=== PATIENT | female | born 1940 | race Two or more races ===

== ENCOUNTER 2020-06-11 20:08 | Inpatient (IN) | payer MEDICARE, OTHER ==
[~2020-06-11] VITALS: Ht 152.4 cm; Wt 90.3 kg
[~2020-06-11 20:08] MED LIST: ATORVASTATIN CA40 MG ORAL; CARVEDILOL25 MG ORAL; DIOVAN HCT 3201 EAC1 ORAL; DOCUSATE SODIU100 MG ORAL; FEROSUL325 M1 PO; FUROSEMIDE40 MG ORAL; GABAPENTIN100 MG ORAL; HYDRALAZINE HCL50 MG ORAL; KLOR-CON 1010 MEQ ORAL; LANTUS SOL100 UNIT/1 SUBQ; LEVOTHYROXINE75 MCG ORAL; METFORMIN HCL1000 M1 ORAL; METOLAZONE5 MG PO; MYRBETRIQ25 MG PO; PANTOPRAZOLE SO40 MG ORAL; SERTRALINE HCL50 MG ORAL; SUCRALFATE1 GM ORAL; VITAMIN D325 MC1 PO
--- NOTE | 2020-06-11 20:47 | Emergency Room Report ---
History of Present Illness General Chief Complaint: Gastrointestinal Bleed Source: Patient Present Illness HPI Disclaimer: Please note that this report is being documented using DRAGON technology. This can lead to erroneous entry secondary to incorrect interpretation by the dictating instrument. HPI: 79-year-old female with history of GI bleeds presents for black stools. Symptoms present for the past few days. She reports 5 bowel movements that were almost jet black. Denies bright red bleeding per rectum. She also has a history of gastric polyps status post Endo Clip also had polyps in the colon which were removed. These polyps were negative for malignancy. Prior history of atrial fibrillation but no longer anticoagulated due to GI bleed. Denies abdominal pain, nausea, vomiting, diarrhea, chest pain, palpitation, shortness of breath, fever, chills PMH: Atrial fibrillation, hypertension, hyperlipidemia, diabetes, GI bleed PSH: Polypectomy Allergies: Reviewed Social Hx: Reviewed Allergies: Coded Allergies: No Known Allergies (Unverified , 04/10/20) COVID-19 Screening Contact w/high risk pt: No Experienced COVID-19 symptoms?: No COVID-19 Testing performed ENGLISH ADJUNCT FACULTY: Yes - OCT COVID-19 Screening: Negative COVID-19 COVID-19 Testing Source: [facility] Patient History Now: No Nursing Documentation-PMH Past Medical History: No History, Except For Hx Cardiac Problems: Yes - A-FIBRILLATION , HERNIA Hx Hypertension: Yes Hx Diabetes: Yes Hx Cancer: No Hx Gastrointestinal Problems: Yes - COLON POLYPS Hx Neurological Problems: No Review of Systems All Other Systems: negative except mentioned in HPI Physical Exam Vital Signs Date Time Temp Pulse Resp B/P (MAP) Pulse Ox O2 Delivery O2 Flow Rate FiO2 06/11/20 20:24 97.3 73 18 135/73 (93) 95 Room Air General: Awake and alert, no acute distress HEENT: NC/AT. EOMI. Cardiovascular: RRR. S1 and S2 normal. No murmur appreciated Resp: Normal work of breathing. No cough, wheezing or crackles appreciated Abdomen: Abdomen is soft, nondistended. Nontender. Obese abdomen. Black stool in rectal vault. No palpable hemorrhoids. Skin: Intact. No abrasions, laceration or rash over the exposed skin MSK: Normal tone and bulk. Moving all extremities. No obvious deformity. Neuro: Awake and alert. Mentating appropriately. Procedures Critical Care Time Critical Care Time Total critical care time: Approximately 31 minutes Due to a high probability of clinically significant, life threatening deterioration, the patient required the highest level of preparedness to intervene emergently and I personally spent this critical care time directly and personally managing the patient. This critical care time included obtaining a history, examining the patient, pulse oximetry, ordering and reviewing studies, ordering treatments, evaluating response to treatment and updating management plan as needed, frequent reassessment and discussion with other providers as well as arranging for ultimate disposition. This critical to care time was performed to assess and manage the high probability of life-threatening deterioration that could result in multiorgan failure. This critical care time is separate from the separately billable procedures and treating other patients. Medical Decision Making Diagnostic Impression: Primary Impression: Gastrointestinal bleeding Additional Impressions: Anemia Renal failure (ARF), acute on chronic Chronic atrial fibrillation ER Course Is a 79-year-old female presenting for evaluation of black and tarry stools. Concern for GI bleed. Patient treated with Protonix. Hemoglobin 10.9. No indication for emergent transfusion at this time. Possible urinary tract inf ection patient was treated ceftriaxone. Creatinine elevated from prior visits. Receiving IV fluids. Will be admitted for GI bleed. She is a patient of Dr. Guardado who has accepted her for admission. Laboratory Tests Test 06/11/20 22:05 06/11/20 22:19 White Blood Count 8.1 K/UL (4.8-10.8) Red Blood Count 3.81 M/UL (4.20-5.40) L Hemoglobin 10.9 G/DL (12.0-16.0) L Hematocrit 33.4 % (37.0-47.0) L Mean Corpuscular Volume 88 FL (80-99) Mean Corpuscular Hemoglobin 28.6 PG (27.0-31.0) Mean Corpuscular Hemoglobin Concent 32.6 G/DL (32.0-36.0) Red Cell Distribution Width 15.9 % (11.6-14.8) H Platelet Count 160 K/UL (150-450) Mean Platelet Volume 8.3 FL (6.5-10.1) Neutrophils (%) (Auto) 76.8 % (45.0-75.0) H Lymphocytes (%) (Auto) 12.7 % (20.0-45.0) L Monocytes (%) (Auto) 6.7 % (1.0-10.0) Eosinophils (%) (Auto) 2.7 % (0.0-3.0) Basophils (%) (Auto) 1.0 % (0.0-2.0) Stool Occult Blood Pending Sodium Level 137 MMOL/L (136-145) Potassium Level 3.7 MMOL/L (3.5-5.1) Chloride Level 98 MMOL/L (98-107) Carbon Dioxide Level 27 MMOL/L (21-32) Anion Gap 12 mmol/L (5-15) Blood Urea Nitrogen 99 mg/dL (7-18) H Creatinine 2.3 MG/DL (0.55-1.30) H Estimated Glomerular Filtration Rate 20.5 mL/min (>60) Glucose Level 133 MG/DL (74-106) H Calcium Level 9.3 MG/DL (8.5-10.1) Total Bilirubin 0.3 MG/DL (0.2-1.0) Aspartate Amino Transferase (AST) 13 U/L (15-37) L Alanine Aminotransferase (ALT) 16 U/L (12-78) Alkaline Phosphatase 88 U/L (46-116) Troponin I 0.025 ng/mL (0.000-0.056) Total Protein 6.7 G/DL (6.4-8.2) Albumin 3.6 G/DL (3.4-5.0) Globulin 3.1 g/dL Albumin/Globulin Ratio 1.2 (1.0-2.7) Lipase 218 U/L (73-393) Urine Color Pale yellow Urine Appearance Slightly cloudy Urine pH 5 (4.5-8.0) Urine Specific [place] 1.005 (1.005-1.035) Urine Protein Negative (NEGATIVE) Urine Glucose (UA) Negative (NEGATIVE) Urine Ketones Negative (NEGATIVE) Urine Blood Negative (NEGATIVE) Urine Nitrite Negative (NEGATIVE) Urine Bilirubin Negative (NEGATIVE) Urine Urobilinogen Normal MG/DL (0.0-1.0) Urine Leukocyte Esterase 2+ (NEGATIVE) H Urine RBC 0 /HPF (0 - 2) Urine WBC 15-20 /HPF (0 - 2) H Urine Squamous Epithelial Cells Many /LPF (NONE/OCC) H Urine Bacteria Many /HPF (NONE) H EKG Diagnostic Results Troponin ordered: Yes When was troponin ordered?: Jun 11, 2020 EKG Time: 22:57 Rate: normal Other Impression Atrial fibrillation, normal rate Rhythm Strip Diag. Results Rhythm Strip Time: 02:25 EP Interpretation: yes Rate: 60s Rhythm: other - Irregularly irregular rhythm Last Vital Signs Date Time Temp Pulse Resp B/P (MAP) Pulse Ox O2 Delivery O2 Flow Rate FiO2 06/11/20 20:24 97.3 73 18 135/73 (93) 95 Room Air Disposition: ADMITTED INPATIENT Condition: Serious Fritz Sotne MD Jun 11, 2020 20:47
[2020-06-11 21:00] VITALS: BP 119/48
--- NOTE | 2020-06-11 21:00 | NUR ---
ED Nurse Note: Patient walked into ED from home for c/o black stool for the past few days. She notes she has had 5 BM that were consistenly dark black. She denies bright red blood in stool. She denies SOB, cough, fever, abdominal pain, N/V. She is aaox4, breathing is normal and unlabored. Patient connected to monitor technician. Safety measures in place.
[2020-06-11] MEDS ORDERED: Pantoprazole Inj IVP ONE (21:30)
[2020-06-11 22:26] LABS: EOSINOPHILS % (AUTO) 2.7 % (0.0-3.0); HEMATOCRIT 33.4 % (37.0-47.0); HEMOGLOBIN 10.9 G/DL (12.0-16.0); LYMPHOCYTES % (AUTO) 12.7 % (20.0-45.0); MEAN CORPUSCULAR VOLUME 88 FL (80-99); MONOCYTES % (AUTO) 6.7 % (1.0-10.0); NEUTROPHILS % (AUTO) 76.8 % (45.0-75.0); PLATELET COUNT 160 K/UL (150-450); RED BLOOD COUNT 3.81 M/UL (4.20-5.40); RED CELL DISTRIBUTION WIDTH 15.9 % (11.6-14.8); WHITE BLOOD COUNT 8.1 K/UL (4.8-10.8)
[2020-06-11 22:35] LABS: APPEARANCE,URINE SLIGHTLY CLOUDY; BILIRUBIN, URINE NEGATIVE (NEGATIVE); COLOR,URINE PALE YELLOW; GLUCOSE, URINE (UA) NEGATIVE (NEGATIVE); KETONES,URINE NEGATIVE (NEGATIVE); LEUKOCYTE ESTERASE ,URINE 2+ (NEGATIVE); NITRITE,URINE NEGATIVE (NEGATIVE); PH,URINE 5 (4.5-8.0); PROTEIN,URINE NEGATIVE (NEGATIVE); UROBILINOGEN,URINE NORMAL MG/DL (0.0-1.0)
[2020-06-11] MEDS ORDERED: cefTRIAXone 1 GM in NS 55 ML IVPB ONE (22:45)
[2020-06-11 22:46] LABS: CALCIUM 9.3 MG/DL (8.5-10.1); CREATININE 2.3 MG/DL (0.55-1.30); POTASSIUM 3.7 MMOL/L (3.5-5.1)
[2020-06-11 22:50] LABS: ALBUMIN 3.6 G/DL (3.4-5.0); ALBUMIN/GLOBULIN RATIO 1.2 (1.0-2.7); BILIRUBIN,TOTAL 0.3 MG/DL (0.2-1.0)
[2020-06-11 23:00] VITALS: BP 141/60
--- NOTE | 2020-06-11 23:00 | NUR ---
ED Nurse Note: Patient is resting in bed. VSS. She is able to use bedside commode without difficulty. Awake and alert, aware of hospital admission and agrees with treatment plan.
--- NOTE | 2020-06-11 23:25 | NUR ---
ED Nurse Note: Report given to LULÚ Evans.
--- NOTE | 2020-06-11 23:30 | NUR ---
ED Nurse Note: REPORT GIVEN TO NNEKA CHINO. PATIENT TO BE ADMITTED TO TELE 211-2 UNDER THE CARE OF UZMA OLIVARES
[2020-06-12] VITALS: BP 148/62
--- NOTE | 2020-06-12 | NUR ---
NURSE NOTES: Received pt from ED via gurney. Pt transferred to [facility] without any incident. Received report from LULÚ Jeronimo. Pt is A/Ox4. lunchroom monitor is in placed; pt is in A. Fib. IV site intact, asymptomatic and patent. Belonging list checked and signed. Bed is in the lowest position and locked. Call light and bedside table is within reach. No signs/symptoms of acute distress noted. Will contact MD for admission orders.
--- NOTE | 2020-06-12 00:20 | NUR ---
ED Nurse Note: Patient stable for tele transfer at this time. Patient is aaox4, breathing is normal and vital signs are stable at time of ED departure. Patient taken to unit via gurney while connected to bus driver/monitor by RN. She took belongings with her. IV patent and intact. Transferred care to LULÚ Evans w/o complication.
[2020-06-12] MEDS ORDERED: D5 1/2NS 1,000 ML IV SCH (00:30)
[2020-06-12] MEDS ORDERED: Miralax 17gm pkt ORAL PRN (00:30)
[2020-06-12] MEDS ORDERED: Nitroglycerin Subl 0.4mg tab SL PRN (00:30)
--- NOTE | 2020-06-12 00:30 | NUR ---
NURSE NOTES: Received admission orders from Dr. Blackburn. Will note and carry out.
[2020-06-12 04:00] VITALS: BP 151/66
[2020-06-12] MEDS: NovoLOG Insulin Flexpen SUBQ SCH ×4 (05:49→21:39)
[2020-06-12] MEDS: Sucralfate 1gm tab ORAL SCH ×4 (06:19→21:28)
[2020-06-12] MEDS: HydrALAZINE 50mg tab ORAL SCH ×3 (06:19→21:41)
--- NOTE | 2020-06-12 07:30 | NUR ---
NURSE NOTES: RECEIVED PATIENT A/A/OX4, [place]GI[place] SPEAKING AND ABLE TO FOLLOW COMMANDS. AMBULATES WITH ASSISTANCE. BSC. PIV PATENT AND INTACT. IVF INFUSING WELL. NPO XCEPT MEDS AND ICE CHIPS. NO ACUTE CARDIO RESP DISTRESS NOTED. KEPT BED IN THE LOWEST POSITION. SIDERAILS ARE UPX2, CALL LIGHT IS WITHIN REACH. BED BRAKES AND LOCK MODE @ ALL TIMES. WILL CONT TO MONITOR.
--- NOTE | 2020-06-12 07:50 | NUR ---
NURSE HAND-OFF REPORT: Important Events on Shift: Pt admitted for GI Bleed. Received admission order from Dr. Blackburn. No acute distress during judge's clerk. Patient Status: Stable Diet: NPO Pending Orders: N Pending Results/Labs: AM Labs Pending MD notification: N Latest Vital Signs: Temperature 97.7 , Pulse 75 , B/P 139 /66 , Respiratory Rate 17 , O2 SAT 98 , Room Air, O2 Flow Rate . EKG Rhythm: Atrial Fibrillation Rhythm change?: N Latest Lopez Fall Score: 70 Fall Risk: High Risk Safety Measures: Call light Within Reach, Bed Alarm Zone 2, Side Rails Side Rails x2, Bed position Low and Locked. Fall Precautions: Yellow Socks Yellow Gown Door Sign Patient Fall Education Report given to LULÚ Tabares.
[2020-06-12 08:00] VITALS: BP 134/56
[2020-06-12] MEDS: Carvedilol 25mg Tab ORAL SCH ×2 (08:32→21:29)
[2020-06-12] MEDS: Sertraline 50mg tab ORAL SCH (08:32)
--- NOTE | 2020-06-12 10:22 | Consultation ---
Consult Note Consult Note I am asked to evaluate the patient at the request of Dr. Guardado for renal failure Patient seen in room 211 Full note to follow HPI: 79-year-old female with history of GI bleeds presents for black stools. Symptoms present for the past few days. She reports 5 bowel movements that were almost jet black. Denies bright red bleeding per rectum. She also has a history of gastric polyps status post Endo Clip also had polyps in the colon which were removed. These polyps were negative for malignancy. Prior history of atrial fibrillation but no longer anticoagulated due to GI bleed. Denies abdominal pain, nausea, vomiting, diarrhea, chest pain, palpitation, shortness of breath, fever, chills PMH: Atrial fibrillation, hypertension, hyperlipidemia, diabetes, GI bleed PSH: Polypectomy Allergies: Reviewed Social Hx: Reviewed Allergies: Coded Allergies: No Known Allergies (Unverified , 04/10/20) COVID-19 Screening Contact w/high risk pt: No Experienced COVID-19 symptoms?: No COVID-19 Testing performed OPERATOR ENGINEER: Yes - OCT COVID-19 Screening: Negative COVID-19 COVID-19 Testing Source: [facility] Past Medical History: No History, Except For Hx Cardiac Problems: Yes - A-FIBRILLATION , HERNIA Hx Hypertension: Yes Hx Diabetes: Yes Hx Gastrointestinal Problems: Yes - COLON POLYPS Vital Signs ER: Date Time Temp Pulse Resp B/P (MAP) Pulse Ox O2 Delivery O2 Flow Rate FiO2 06/11/20 20:24 97.3 73 18 135/73 (93) 95 Room Air PHYSICAL EXAMINATION: VITAL SIGNS: Show blood pressure of 130/70, pulse is 70, respirations 18, temperature 97.5. HEAD AND NECK: Shows no JVD. LUNGS: Clear. CARDIOVASCULAR: Shows regular S1 and S2 with no gallop or murmur. ABDOMEN: Soft. EXTREMITIES: No pitting edema. LABORATORY AND DIAGNOSTIC DATA: Her labs show white count of 5.6, hemoglobin 10.2, hematocrit of 31, and platelet count is 139. Sodium is 142, potassium 3.8, BUN of 16, creatinine 1.8, and glucose of 196. BNP 6517. . Assessment/Plan Acute renal failure, superimposed on CKD Dehydration Anemia, GI bleed History of atrial fibrillation UTI Diabetes mellitus Hypothyroidism Slow hydrate Monitor renal parameters Monitor hemoglobin hematocrit Antibiotics 2D echocardiogram Kidney ultrasound Check TSH, lipid panel, anemia work-up, hemoglobin A1c Per consultants Per orders Caleb Agudelo MD Jun 12, 2020 10:22
[2020-06-12] MEDS ORDERED: Docusate 100mg cap ORAL PRN (10:30)
--- NOTE | 2020-06-12 10:54 | NUR ---
CASE MANAGEMENT:REVIEW 79 YR OLD FEMALE PRESENTED TO ER BY FAMILY CC; BLACK STOOLS PMH: AFIB SI:GIB. AC/CHR RENAL FAILURE. ANEMIA 97.3 73 18 119/48 95% ON RA H/H-10.9/33.4 BUN+99 CR+2.3 IS:1L NS BOLUS IV ROCEPHIN URINE CX : TO TELEMETRY
[2020-06-12] MEDS: D5NS 1,000 ML IV SCH ×3 (11:38→23:50)
[2020-06-12] MEDS: Pantoprazole Inj IVP SCH ×2 (11:46→21:16)
--- NOTE | 2020-06-12 11:58 | General Progress Note ---
Subjective Allergies: Coded Allergies: No Known Allergies (Unverified , 04/10/20) Objective Last 24 Hour Vital Signs Date Time Temp Pulse Resp B/P (MAP) Pulse Ox O2 Delivery O2 Flow Rate FiO2 06/12/20 11:18 Room Air 06/12/20 08:32 68 134/56 06/12/20 08:00 65 06/12/20 08:00 98.2 68 20 134/56 (82) 96 06/12/20 06:19 139/66 06/12/20 04:00 97.7 75 17 151/66 (94) 98 06/12/20 04:00 64 06/12/20 00:56 Room Air 06/12/20 00:38 65 06/12/20 00:20 97.8 78 18 139/66 99 Room Air 06/12/20 00:00 98.1 65 17 148/62 (90) 97 06/11/20 23:00 97.8 72 18 141/60 99 Room Air 06/11/20 21:00 73 18 Room Air 06/11/20 21:00 97.3 70 18 119/48 98 Room Air 06/11/20 20:24 97.3 73 18 135/73 (93) 95 Room Air Intake and Output 06/11/20 06/12/20 19:00 07:00 Intake Total 1055 ml Balance 1055 ml Intake Oral 0 ml IV Total 1055 ml # Voids 4 Laboratory Tests 06/11/20 22:05: White Blood Count 8.1, Red Blood Count 3.81L, Hemoglobin 10.9L, Hematocrit 33.4L , Mean Corpuscular Volume 88, Mean Corpuscular Hemoglobin 28.6, Mean Corpuscular Hemoglobin Concent 32.6, Red Cell Distribution Width 15.9H, Platelet Count 160, Mean Platelet Volume 8.3, Neutrophils (%) (Auto) 76.8H, Lymphocytes (%) (Auto) 12.7L, Monocytes (%) (Auto) 6.7, Eosinophils (%) (Auto) 2.7, Basophils (%) (Auto) 1.0, Stool Occult Blood [Pending], Sodium Level 137, Potassium Level 3.7, Chloride Level 98, Carbon Dioxide Level 27, Anion Gap 12, Blood Urea Nitrogen 99H, Creatinine 2.3H, Estimat Glomerular Filtration Rate 20.5, Glucose Level 133H, Calcium Level 9.3, Total Bilirubin 0.3, Aspartate Amino Transf (AST/SGOT) 13L, Alanine Aminotransferase (ALT/SGPT) 16, Alkaline Phosphatase 88, Troponin I 0.025, Total Protein 6.7, Albumin 3.6, Globulin 3.1, Albumin/Globulin Ratio 1 .2, Lipase 218 06/11/20 22:19: Urine Color Pale yellow, Urine Appearance Slightly cloudy, Urine pH 5, Urine Specific [place] 1.005, Urine Protein Negative, Urine Glucose (UA) Negative, Urine Ketones Negative, Urine Blood Negative, Urine Nitrite Negative, Urine Bilirubin Negative, Urine Urobilinogen Normal, Urine Leukocyte Esterase 2+H, Urine RBC 0, Urine WBC 15-20H, Urine Squamous Epithelial Cells ManyH, Urine James teria ManyH 06/12/20 05:40: POC Whole Blood Glucose 127H Height (Feet): 5 Height (Inches): 0.00 Weight (Pounds): 200 Assessment/Plan Assessment/Plan: GI Consult Full note to follow Recurrent GI bleed Will schedule for EGD and push enteroscopy Thank you P Poppy Akbar MD Jun 12, 2020 11:58
[2020-06-12 12:00] VITALS: BP 134/55
--- NOTE | 2020-06-12 12:33 | NUR ---
NURSE NOTES: SENT URINE SAMPLE FOR NA. WILL CONT TO MONITOR.
--- NOTE | 2020-06-12 14:21 | Consultation ---
History of Present Illness General Date patient seen: Jun 12, 2020 Chief Complaint: Gastrointestinal Bleed Present Illness HPI 79-year-old female with history afib, Not anticoagulated, htn, DM, previous episode GI bleeding presented b/o black stools for the past few days. She was found to be anemic and in renal failure. she is admitted for further management. Allergies: Coded Allergies: No Known Allergies (Unverified , 04/10/20) Medication History Scheduled Atorvastatin Calcium* (Atorvastatin Calcium*), 40 MG ORAL BEDTIME, (Reported) Carvedilol* (Carvedilol*), 25 MG ORAL EVERY 12 HOURS, (Reported) Cholecalciferol (Vitamin D3) (Vitamin D3*), 25 MCG PO DAILY, (Reported) Ferrous Sulfate (Ferosul), 325 MG PO DAILY, (Reported) Hydralazine Hcl* (Hydralazine Hcl*), 50 MG ORAL EVERY 8 HOURS, (Reported) Insulin Glargine (Lantus), 30 UNITS SUBQ DAILY, (Reported) Levothyroxine Sodium* (Synthorid*), 75 MCG ORAL DAILY, (Reported) Metformin Hcl* (Metformin Hcl*), 1,000 MG ORAL TWICE A DAY, (Reported) Mirabegron (Myrbetriq), 25 MG PO DAILY, (Reported) Pantoprazole* (Pantoprazole*), 40 MG ORAL BID Potassium Chloride (Klor-Con 10), 10 MEQ ORAL DAILY, (Reported) Sertraline Hcl* (Zoloft*), 50 MG ORAL DAILY, (Reported) Sucralfate* (Carafate*), 1 GM ORAL FOUR TIMES A DAY Valsartan/Hydrochlorothiazide 320-25MG (Diovan Hct 320-25 Mg Tablet), 1 TAB ORAL DAILY, (Reported) Scheduled PRN Docusate Sodium* (Docusate Sodium*), 100 MG ORAL TWICE A DAY PRN for Constipation, (Reported) Miscellaneous Medications Gabapentin* (Gabapentin*), 100 MG ORAL, (Reported) Metolazone (Metolazone), 5 MG PO, (Reported) Patient History Healthcare decision maker Resuscitation status Advanced Directive on File Past Medical/Surgical History Past Medical/Surgical History: (1) Chronic atrial fibrillation (2) Diabetes mellitus (3) Hypothyroidism (4) HTN (hypertension) (5) DMII (diabetes mellitus, type 2) (6) Anemia Review of Systems All Other Systems: negative except mentioned in HPI Physical Exam General Appearance: WD/WN, no apparent distress Lines, tubes and drains: peripheral HEENT: normocephalic, atraumatic Neck: non-tender, supple Respiratory/Chest: chest wall non-tender, lungs clear, normal breath sounds Breasts: no masses Cardiovascular/Chest: normal peripheral pulses Abdomen: normal bowel sounds, non tender Genitourinary/Rectal: normal genital exam Last 24 Hour Vital Signs Date Time Temp Pulse Resp B/P (MAP) Pulse Ox O2 Delivery O2 Flow Rate FiO2 06/12/20 13:22 141/62 06/12/20 12:28 69 06/12/20 12:00 98.1 68 18 134/55 (81) 97 06/12/20 11:18 Room Air 06/12/20 08:32 68 134/56 06/12/20 08:00 65 06/12/20 08:00 98.2 68 20 134/56 (82) 96 06/12/20 06:19 139/66 06/12/20 04:00 97.7 75 17 151/66 (94) 98 06/12/20 04:00 64 06/12/20 00:56 Room Air 06/12/20 00:38 65 06/12/20 00:20 97.8 78 18 139/66 99 Room Air 06/12/20 00:00 98.1 65 17 148/62 (90) 97 06/11/20 23:00 97.8 72 18 141/60 99 Room Air 06/11/20 21:00 73 18 Room Air 06/11/20 21:00 97.3 70 18 119/48 98 Room Air 06/11/20 20:24 97.3 73 18 135/73 (93) 95 Room Air Intake and Output 06/11/20 06/12/20 19:00 07:00 Intake Total 1055 ml Balance 1055 ml Intake Oral 0 ml IV Total 1055 ml # Voids 4 Laboratory Tests Test 06/11/20 22:05 06/11/20 22:19 06/12/20 05:40 06/12/20 12:06 White Blood Count 8.1 K/UL (4.8-10.8) Red Blood Count 3.81 M/UL (4.20-5.40) L Hemoglobin 10.9 G/DL (12.0-16.0) L Hematocrit 33.4 % (37.0-47.0) L Mean Corpuscular Volume 88 FL (80-99) Mean Corpuscular Hemoglobin 28.6 PG (27.0-31.0) Mean Corpuscular Hemoglobin Concent 32.6 G/DL (32.0-36.0) Red Cell Distribution Width 15.9 % (11.6-14.8) H Platelet Count 160 K/UL (150-450) Mean Platelet Volume 8.3 FL (6.5-10.1) Neutrophils (%) (Auto) 76.8 % (45.0-75.0) H Lymphocytes (%) (Auto) 12.7 % (20.0-45.0) L Monocytes (%) (Auto) 6.7 % (1.0-10.0) Eosinophils (%) (Auto) 2.7 % (0.0-3.0) Basophils (%) (Auto) 1.0 % (0.0-2.0) Stool Occult Blood Pending Sodium Level 137 MMOL/L (136-145) Potassium Level 3.7 MMOL/L (3.5-5.1) Chloride Level 98 MMOL/L (98-107) Carbon Dioxide Level 27 MMOL/L (21-32) Anion Gap 12 mmol/L (5-15) Blood Urea Nitrogen 99 mg/dL (7-18) H Creatinine 2.3 MG/DL (0.55-1.30) H Estimat Glomerular Filtration Rate 20.5 mL/min (>60) Glucose Level 133 MG/DL (74-106) H Calcium Level 9.3 MG/DL (8.5-10.1) Total Bilirubin 0.3 MG/DL (0.2-1.0) Aspartate Amino Transf (AST/SGOT) 13 U/L (15-37) L Alanine Aminotransferase (ALT/SGPT) 16 U/L (12-78) Alkaline Phosphatase 88 U/L (46-116) Troponin I 0.025 ng/mL (0.000-0.056) Total Protein 6.7 G/DL (6.4-8.2) Albumin 3.6 G/DL (3.4-5.0) Globulin 3.1 g/dL Albumin/Globulin Ratio 1.2 (1.0-2.7) Lipase 218 U/L (73-393) Urine Color Pale yellow Urine Appearance Slightly cloudy Urine pH 5 (4.5-8.0) Urine Specific [place] 1.005 (1.005-1.035) Urine Protein Negative (NEGATIVE) Urine Glucose (UA) Negative (NEGATIVE) Urine Ketones Negative (NEGATIVE) Urine Blood Negative (NEGATIVE) Urine Nitrite Negative (NEGATIVE) Urine Bilirubin Negative (NEGATIVE) Urine Urobilinogen Normal MG/DL (0.0-1.0) Urine Leukocyte Esterase 2+ (NEGATIVE) H Urine RBC 0 /HPF (0 - 2) Urine WBC 15-20 /HPF (0 - 2) H Urine Squamous Epithelial Cells Many /LPF (NONE/OCC) H Urine Bacteria Many /HPF (NONE) H POC Whole Blood Glucose 127 MG/DL (74-106) H Urine Random Sodium 47 mmol/L (20-110) Height (Feet): 5 Height (Inches): 0.00 Weight (Pounds): 200 Medications Current Medications Medications (Trade) Dose Ordered Sig/Fidel Route PRN Reason Start Time Stop Time Status Last Admin Dose Admin Acetaminophen (Tylenol) 650 mg Q4H PRN ORAL fever 06/12/20 00:30 07/12/20 00:29 Carvedilol (Coreg) 25 mg EVERY 12 HOURS ORAL 06/12/20 09:00 07/12/20 08:59 06/12/20 08:32 Dextrose (Dextrose 50%) 25 ml Q30M PRN IV Hypoglycemia 06/12/20 00:30 09/10/20 00:29 Dextrose (Dextrose 50%) 50 ml Q30M PRN IV Hypoglycemia 06/12/20 00:30 09/10/20 00:29 Dextrose/Sodium Chloride 1,000 ml @ 75 mls/hr [id number] IV 06/12/20 10:30 07/12/20 10:29 06/12/20 11:38 Dextrose/Sodium Chloride 1,000 ml @ 150 mls/hr Q6H40M IV 06/12/20 14:15 07/12/20 14:14 Diphenhydramine HCl (Benadryl) 25 mg Q6H PRN ORAL Itching/Pruritis 06/12/20 00:30 07/12/20 00:29 Docusate Sodium (Colace) 100 mg BIDPRN PRN ORAL Constipation 06/12/20 10:30 07/12/20 10:29 Gabapentin (Neurontin) 100 mg BID ORAL 06/12/20 09:00 07/12/20 08:59 06/12/20 08:32 Hydralazine HCl (Apresoline) 50 mg EVERY 8 HOURS ORAL 06/12/20 06:00 09/10/20 05:59 06/12/20 13:22 Insulin Aspart (NovoLOG) BEFORE MEALS AND HS SUBQ 06/12/20 06:30 09/10/20 06:29 Levothyroxine Sodium (Synthroid) 75 mcg DAILY@0630 ORAL 06/12/20 06:30 07/12/20 06:29 06/12/20 06:19 Nitroglycerin (Ntg) 0.4 mg Q5M X 3 DOSES PRN SL Prn Chest Pain 06/12/20 00:30 07/12/20 00:29 Ondansetron HCl (Zofran) 4 mg Q6H PRN IVP Nausea & Vomiting 06/12/20 00:30 07/12/20 00:29 Pantoprazole (Protonix) 40 mg EVERY 12 HOURS IVP 06/12/20 10:45 07/12/20 10:44 06/12/20 11:46 Polyethylene Glycol (Miralax) 17 gm HSPRN PRN ORAL Constipation 06/12/20 00:30 07/12/20 00:29 Sertraline HCl (Zoloft) 50 mg DAILY ORAL 06/12/20 09:00 07/12/20 08:59 06/12/20 08:32 Sucralfate (Carafate) 1 gm AC+HS ORAL 06/12/20 06:30 09/10/20 06:29 06/12/20 11:38 Temazepam (Restoril) 15 mg HSPRN PRN ORAL Insomnia 06/12/20 00:30 06/19/20 00:29 Assessment/Plan Problem List: (1) GI (gastrointestinal bleed) ICD Codes: K92.2 - Gastrointestinal hemorrhage, unspecified SNOMED: 91666573 (2) Acute dehydration ICD Codes: E86.0 - Dehydration SNOMED: 3132696, 10665858 (3) Renal failure (ARF), acute on chronic ICD Codes: N17.9 - Acute kidney failure, unspecified; N18.9 - Chronic kidney disease, unspecified SNOMED: 318695894 (4) Anemia ICD Codes: D64.9 - Anemia, unspecified SNOMED: 313845734 (5) Diabetes mellitus ICD Codes: E11.9 - Type 2 diabetes mellitus without complications SNOMED: 95126458 (6) HTN (hypertension) ICD Codes: I10 - Essential (primary) hypertension SNOMED: 79608712 (7) Hypothyroidism ICD Codes: E03.9 - Hypothyroidism, unspecified SNOMED: 57462422 Assessment/Plan: NPO iv fluids check electrolytes prbc prn keep in teli GI evaluation hold all antigoaculations Cassy Blackburn MD Jun 12, 2020 14:21
[2020-06-12] MEDS: D5 1/2NS 1,000 ML IV SCH ×2 (14:22→21:19)
[2020-06-12 15:06] LABS: BASOPHILS % (AUTO) 1.1 % (0.0-2.0); EOSINOPHILS % (AUTO) 2.1 % (0.0-3.0); HEMATOCRIT 33.3 % (37.0-47.0); HEMOGLOBIN 10.6 G/DL (12.0-16.0); LYMPHOCYTES % (AUTO) 13.7 % (20.0-45.0); MEAN CORPUSCULAR VOLUME 88 FL (80-99); MONOCYTES % (AUTO) 6.6 % (1.0-10.0); NEUTROPHILS % (AUTO) 76.4 % (45.0-75.0); PLATELET COUNT 159 K/UL (150-450); RED BLOOD COUNT 3.77 M/UL (4.20-5.40); RED CELL DISTRIBUTION WIDTH 15.5 % (11.6-14.8); WHITE BLOOD COUNT 6.3 K/UL (4.8-10.8)
[2020-06-12 15:10] LABS: BLOOD UREA NITROGEN 84 mg/dL (7-18); CALCIUM 9.1 MG/DL (8.5-10.1); CARBON DIOXIDE 29 MMOL/L (21-32); CHLORIDE 101 MMOL/L (98-107); CREATININE 1.9 MG/DL (0.55-1.30); POTASSIUM 3.4 MMOL/L (3.5-5.1); SODIUM 139 MMOL/L (136-145)
--- NOTE | 2020-06-12 15:42 | NUR ---
NURSE NOTES: SENT SPECIMEN FOR RAPID COVID SWAB. WILL CONT TO MONITOR
--- NOTE | 2020-06-12 15:46 | NUR ---
NURSE NOTES: MADE DR PETERSEN AWARE OF THE K+3.4 TODAY. AWAITS FOR A CALLBACK. WILL CONT TO MONITOR. Addendum: 06/12/20 at 1731 by MARGIE HIGH LVN NEW ORDER OBTAINED.
[2020-06-12 15:47] LABS: % IRON SATURATION 16 % (15-50); IRON 39 ug/dL (50-175); TOTAL IRON BINDING CAPACITY 240 ug/dL (250-450)
[2020-06-12 15:49] VITALS: BP 145/65
[2020-06-12 16:25] LABS: FERRITIN 50 NG/ML (8-388)
--- NOTE | 2020-06-12 16:39 | Diagnostic Imaging Report ---
Indication: Acute renal failure Technique: Grayscale and duplex images of the kidneys, retroperitoneum, and bladder were obtained. Comparison: none Findings: Right kidney measures 7.9 cm in length. Left kidney measures 9.1 cm in length. Both kidneys demonstrate normal echogenicity with lobulated contours. No hydronephrosis. There is a small cyst in the right kidney. Partially obscured inferior vena cava. Bladder is normal. There is incidental finding of a gallstone within the gallbladder Impression: Small right kidney Negative for hydronephrosis Small right renal cyst is incidentally noted. Cholelithiasis.
--- NOTE | 2020-06-12 18:12 | NUR ---
NURSE NOTES: MADE DR CLEMENT AWARE OF THE RESULT OF COVID - NEGATIVE. SALAZAR CONT TO MONITOR
--- NOTE | 2020-06-12 18:13 | NUR ---
NURSE NOTES: GIVEN MIRALAX FOR CONSTIPATION. ABLE TO GO ON THE COMMODE WITH ASSISTANCE. WILL CONT TO MONITOR.
--- NOTE | 2020-06-12 19:16 | NUR ---
NURSE HAND-OFF REPORT: Important Events on Shift:[kept patient clean and comfortable. working on obtaining consent from family.] Patient Status: [medicated for constipation] Diet: [NPO xcept med/ ice chips] Pending Orders: [labs] Pending Results/Labs:[in am] Pending MD notification:[] Latest Vital Signs: Temperature 97.4 , Pulse 66 , B/P 145 /65 , Respiratory Rate 20 , O2 SAT 96 , Room Air, O2 Flow Rate . Vital Sign Comment: [] EKG Rhythm: Atrial Fibrillation Rhythm change?: N MD Notified?: - MD Response: Latest Lopez Fall Score: 70 Fall Risk: High Risk Safety Measures: Call light Within Reach, Bed Alarm Zone 1, Side Rails Side Rails x2, Bed position Low and Locked. Fall Precautions: Yellow Socks Yellow Gown Door Sign Patient Fall Education Report given to [ap].
--- NOTE | 2020-06-12 20:00 | NUR ---
NURSE NOTES: RECEIVED PATIENT LYING IN BED, AWAKE, ALERT/ORIENTED X4, TAJIK SPEAKING, DENIES PAIN. NO SIGNS AND SYMPTOMS OF ACUTE CARDIO RESPIRATORY DISTRESS/SHORTNESS OF BREATH, TRACE EDEMA NOTED, A FIB ON ALL SOURCE ANALYST. DENIES GI DISCOMFORT, NO EVIDENCE OF BLEEDING. ABDOMEN SOFT/NON DISTENDED/NON TENDER, CONTINENT OF B/B, REQUIRE ASSISTANCE, TO BEDSIDE COMMODE, NO BOWEL MOVEMENT, REMAIN NPO / POSSIBLE EGD AND PUSH ENTEROSCOPY, CONSENT NOT OBTAINED. IV SITE INTACT, NO REDNESS/SWELLING NOTED. SIDE RAILS UP X3/BED IN LOWEST POSITION FOR SAFETY, ENCOURAGED PATIENT TO UTILIZE CALL LIGHT FOR ASSISTANCE, VERBALIZED UNDERSTANDING. CONTINUE WITH CURRENT PLAN OF CARE. NAD.
[2020-06-13] VITALS (10 sets, daily range): BP systolic 125–162; BP diastolic 42–87
--- NOTE | 2020-06-13 02:00 | Consultation ---
DATE OF CONSULTATION: 06/12/2020 GASTROENTEROLOGY CONSULTATION CONSULTING PHYSICIAN: Poppy Pabon MD CHIEF COMPLAINT: I was asked to see this patient by Dr. Reilly Guardado for evaluation of recurrent gastrointestinal bleeding. HISTORY OF PRESENT ILLNESS: The patient is a 79-year-old woman whom I first saw in February when she was admitted for gastrointestinal bleeding. Patient had been previously admitted to [facility] with gastrointestinal bleeding. She underwent an endoscopy in December and some endoscopic treatments were given to her at that time. She had been on some anticoagulation for atrial fibrillation, which worsened her bleeding. When she was admitted in February, she underwent a second endoscopy, which was done by me and the endoscopy showed 2 Endoclips in the midbody of the stomach, which were presumably placed in the outside hospital in December. There was also a 1 centimeter irregularly shaped early gastric polyp in the midbody of the stomach, which was removed. The pathology from that specimen showed a hyperplastic polyp. A few days after that endoscopy, the patient had a colonoscopy showing blood coming from the terminal ileum and therefore from above the colon. Two diminutive polyps were seen on that examination, which were not removed, but these were removed on a subsequent outpatient colonoscopy. Patient is now brought into the hospital due to a several-day history of black stools, which were liquid and consistent with recurrent gastrointestinal bleeding. The patient denies any nausea or vomiting and was advised to come to the hospital for reevaluation. PAST MEDICAL HISTORY: Remarkable for history of upper gastrointestinal bleeding, history of colonic polyps, history of atrial fibrillation, history of tih-omhxaxn-oehhwshgu diabetes mellitus, hypercholesterolemia, hypertension, hypothyroidism, history of overactive bladder. PAST SURGICAL HISTORY: Status post . FAMILY HISTORY: Noncontributory. SOCIAL HISTORY: Patient does not smoke or drink alcohol. She is and Kinyarwanda-speaking. ALLERGIES: None. MEDICATIONS: See the chart list for details. REVIEW OF SYSTEMS: Otherwise negative. PHYSICAL EXAMINATION: GENERAL: Pleasant woman, seen in her room. HEENT: Normocephalic and atraumatic. Sclerae anicteric. Oropharynx clear. NECK: Supple. CHEST: Clear to auscultation. CARDIOVASCULAR: Revealed a regular rate. ABDOMEN: Soft. EXTREMITIES: Revealed no edema. LABORATORY DATA: Noted. ASSESSMENT: This patient presents with recurrent gastrointestinal bleeding, which is presumably upper in source. Differential diagnosis includes recurrent bleeding from ulcers or polyps or arteriovenous malformations. Given the multiple endoscopies with unclear findings, push enteroscopy will be added to the examination tomorrow to evaluate the proximal small bowel. RECOMMENDATIONS: 1. Keep patient NPO. 2. Serial CBC. 3. Transfuse as necessary. 4. Proton pump inhibitor. 5. Endoscopy with push enteroscopy tomorrow. Thank you for asking me to participate in the care of this patient. Poppy Pabon M.D. DR: PINEDA JOB#: [id number] CC:
[2020-06-13 07:04] LABS: BASOPHILS % (AUTO) 1.5 % (0.0-2.0); EOSINOPHILS % (AUTO) 2.4 % (0.0-3.0); HEMATOCRIT 33.2 % (37.0-47.0); HEMOGLOBIN 10.9 G/DL (12.0-16.0); LYMPHOCYTES % (AUTO) 13.8 % (20.0-45.0); MEAN CORPUSCULAR VOLUME 87 FL (80-99); MONOCYTES % (AUTO) 7.2 % (1.0-10.0); NEUTROPHILS % (AUTO) 75.1 % (45.0-75.0); PLATELET COUNT 156 K/UL (150-450); RED BLOOD COUNT 3.82 M/UL (4.20-5.40); RED CELL DISTRIBUTION WIDTH 15.4 % (11.6-14.8); WHITE BLOOD COUNT 6.3 K/UL (4.8-10.8)
[2020-06-13 07:09] LABS: INR 1.1 (0.9-1.1)
[2020-06-13 07:24] LABS: ALANINE AMINOTRANSFERASE 16 U/L (12-78); ALBUMIN 3.3 G/DL (3.4-5.0); ALBUMIN/GLOBULIN RATIO 0.9 (1.0-2.7); ALKALINE PHOSPHATASE 80 U/L (46-116); AMYLASE 51 U/L (25-115); ANION GAP 6 mmol/L (5-15); ASPARTATE AMINO TRANSFERASE 15 U/L (15-37); BILIRUBIN,TOTAL 0.3 MG/DL (0.2-1.0); BLOOD UREA NITROGEN 77 mg/dL (7-18); CARBON DIOXIDE 31 MMOL/L (21-32); CHLORIDE 103 MMOL/L (98-107); CHOLESTEROL 118 MG/DL (< 200); CREATININE 1.9 MG/DL (0.55-1.30); HDL CHOLESTEROL 41 MG/DL (40-60); SODIUM 140 MMOL/L (136-145); TRIGLYCERIDES 87 MG/DL (30-150)
[2020-06-13 07:31] LABS: CREATINE KINASE 36 U/L (26-308); GAMMA GLUTAMYL TRANSPEPTIDASE 41 U/L (5-85); PHOSPHORUS 3.9 MG/DL (2.5-4.9)
--- NOTE | 2020-06-13 08:00 | NUR ---
NURSE HAND-OFF REPORT: Important Events on Shift:[UNEVENTFUL NIGHT, RESTED WELL, NAD.] Patient Status: [STABLE, AFEBRILE] Diet: [NPO EXCEPT ICE CHIPS/MEDS] Pending Orders: [ENDOSCOPY AND PUSH ENTEROSCOPY WITH POSSIBLE BIOPSY, POLYPECTOMY, HEMOSTASIS, AND SUBMUCOSA INJECTION, CONSENT SIGNED BY PATIENT] Pending Results/Labs:[AM LABS PENDING] Pending MD notification:[] Latest Vital Signs: Temperature 97.9 , Pulse 63 , B/P 131 /69 , Respiratory Rate 18 , O2 SAT 96 , Room Air, O2 Flow Rate . Vital Sign Comment: [STABLE, AFEBRILE] EKG Rhythm: A-Fib with BBB Rhythm change?: N MD Notified?: - MD Response: Latest Lopez Fall Score: 70 Fall Risk: High Risk Safety Measures: Call light Within Reach, Bed Alarm Zone 1, Side Rails Side Rails x2, Bed position Low and Locked. Fall Precautions: Yellow Socks Yellow Gown Door Sign Patient Fall Education Report given to [[facility] HOUSE].
[2020-06-13] MEDS: D5NS 1,000 ML IV SCH (08:03)
[2020-06-13] MEDS: HydrALAZINE 50mg tab ORAL SCH ×3 (08:04→21:12)
[2020-06-13] MEDS: Sucralfate 1gm tab ORAL SCH ×4 (08:04→21:11)
[2020-06-13] MEDS: NovoLOG Insulin Flexpen SUBQ SCH ×4 (08:06→21:26)
--- NOTE | 2020-06-13 08:10 | NUR ---
CASE MANAGEMENT:REVIEW 06/13/20 SI: GIB 97.9 66 18 128/61 96% ON RA H/H-10.9/33.2 BUN+77 CR+1.9 [id number]=[id number] IS: IV PROTONIX Q12 IVF@75/HR ZOLOFT PO QD NEURONTIN PO BID COREG PO Q12 SS INSULIN AC+HS CARAFATE BID HYDRALAZINE PO Q8HR : TELEMETRY STATUS DCP; FROM HOME PLAN: CONSENT FOR EGD
--- NOTE | 2020-06-13 08:35 | NUR ---
NURSE NOTES: Received patient report from LULÚ Mendenhall. Patient is AO x4 Kittitian speaking. She shows no signs of distress or pain. Patient is able to ambulate with assistance. Bed side commode next to her bed. IV is intact and patent. There are no signs of erythema, infiltration, or bleeding. Patient is on room air and shows no signs of respiratory distress. Bed is in the lowest position, call light is within reach, side rails up x3. Will continue to monitor.
--- NOTE | 2020-06-13 09:00 | NUR ---
NURSE NOTES: Patients daughter gave consent for EGD with biopsy.
--- NOTE | 2020-06-13 09:53 | Anethesia Preoperative Eval ---
Anesthesia Pre-op PMH/ROS General Date of Evaluation: Jun 13, 2020 Anesthesiologist: Les ASA Score: ASA 3 Mallampati Score Class I : Soft palate, uvula, fauces, pillars visible Class II: Soft palate, uvula, fauces visible Class III: Soft palate, base of uvula visible Class IV: Only hard plate visible Mallampati Classification: Class III Surgeon: Slick Diagnosis: Gi bleed Surgical Procedure: EGD Anesthesia History: none Family History: no anesthesia problems Allergies: Coded Allergies: No Known Allergies (Unverified , 04/10/20) Medications: see eMAR Patient NPO?: Yes NPO Date: Jun 13, 2020 NPO Time: 00:00 Past Medical History Cardiovascular: Reports: HTN, arrhythmia - afib, other - HLD; Denies: CAD, MA, valve dz Pulmonary: Denies: asthma, COPD, ALEAH, other Gastrointestinal/Genitourinary: Denies: GERD, CRI, ESRD, other Neurologic/Psychiatric: Reports: depression/anxiety; Denies: dementia, CVA, TIA, other Endocrine: Reports: DM, hypothyroidism; Denies: steroids, other HEENT: Denies: cataract (L), cataract (R), glaucoma, SNOQUALMIE (L), SNOQUALMIE (R), other Hematology/Immune: Reports: anemia - aacute on chronic; Denies: DVT, bleeding disorder, other Musculoskeletal/Integumentary: Reports: OA; Denies: RA, DJD, DDD, edema, other Other: obesity PSxH Narrative: CONNOR, c/s Anesthesia Pre-op Phys. Exam Physician Exam Last Vital Signs Date Time Temp Pulse Resp B/P (MAP) Pulse Ox O2 Delivery O2 Flow Rate FiO2 06/13/20 08:04 131/69 06/13/20 08:00 97.9 74 20 100 06/12/20 21:00 Room Air Constitutional: NAD Cardiovascular: other - irregular Respiratory: CTA Airway Exam Mallampati Score: Class III MO: limited ROM: limited Anesthesia Pre-op A/P Labs Hematology Test 06/12/20 14:00 06/13/20 06:19 White Blood Count 6.3 K/UL (4.8-10.8) 6.3 K/UL (4.8-10.8) Red Blood Count 3.77 M/UL (4.20-5.40) L 3.82 M/UL (4.20-5.40) L Hemoglobin 10.6 G/DL (12.0-16.0) L 10.9 G/DL (12.0-16.0) L Hematocrit 33.3 % (37.0-47.0) L 33.2 % (37.0-47.0) L Mean Corpuscular Volume 88 FL (80-99) 87 FL (80-99) Mean Corpuscular Hemoglobin 28.2 PG (27.0-31.0) 28.6 PG (27.0-31.0) Mean Corpuscular Hemoglobin Concent 31.9 G/DL (32.0-36.0) L 32.8 G/DL (32.0-36.0) Red Cell Distribution Width 15.5 % (11.6-14.8) H 15.4 % (11.6-14.8) H Platelet Count 159 K/UL (150-450) 156 K/UL (150-450) Mean Platelet Volume 8.9 FL (6.5-10.1) 8.6 FL (6.5-10.1) Neutrophils (%) (Auto) 76.4 % (45.0-75.0) H 75.1 % (45.0-75.0) H Lymphocytes (%) (Auto) 13.7 % (20.0-45.0) L 13.8 % (20.0-45.0) L Monocytes (%) (Auto) 6.6 % (1.0-10.0) 7.2 % (1.0-10.0) Eosinophils (%) (Auto) 2.1 % (0.0-3.0) 2.4 % (0.0-3.0) Basophils (%) (Auto) 1.1 % (0.0-2.0) 1.5 % (0.0-2.0) Coagulation Test 06/13/20 06:19 Prothrombin Time 12.1 SEC (9.30-11.50) H Prothromb Time International Ratio 1.1 (0.9-1.1) Activated Partial Thromboplast Time 27 SEC (23-33) Chemistry Test 06/12/20 14:00 06/13/20 06:19 Sodium Level 139 MMOL/L (136-145) 140 MMOL/L (136-145) Potassium Level 3.4 MMOL/L (3.5-5.1) L 4.0 MMOL/L (3.5-5.1) Chloride Level 101 MMOL/L (98-107) 103 MMOL/L (98-107) Carbon Dioxide Level 29 MMOL/L (21-32) 31 MMOL/L (21-32) Blood Urea Nitrogen 84 mg/dL (7-18) H 77 mg/dL (7-18) H Creatinine 1.9 MG/DL (0.55-1.30) H 1.9 MG/DL (0.55-1.30) H Estimat Glomerular Filtration Rate 25.5 mL/min (>60) 25.5 mL/min (>60) Glucose Level 149 MG/DL (74-106) H 149 MG/DL (74-106) H Calcium Level 9.1 MG/DL (8.5-10.1) 9.0 MG/DL (8.5-10.1) Iron Level 39 ug/dL (50-175) L Total Iron Binding Capacity 240 ug/dL (250-450) L Percent Iron Saturation 16 % (15-50) Unsaturated Iron Binding 201 ug/dL (112-346) Ferritin 50 NG/ML (8-388) Vitamin B12 Level 790 PG/ML (193-986) Folate 12.4 NG/ML (8.6-58.9) Thyroid Stimulating Hormone (TSH) 1.512 uiU/mL (0.358-3.740) Anion Gap 6 mmol/L (5-15) Hemoglobin A1c 6.3 % (4.3-6.0) H Uric Acid 10.0 MG/DL (2.6-7.2) H Phosphorus Level 3.9 MG/DL (2.5-4.9) Magnesium Level 2.1 MG/DL (1.8-2.4) Total Bilirubin 0.3 MG/DL (0.2-1.0) Gamma Glutamyl Transpeptidase 41 U/L (5-85) Aspartate Amino Transf (AST/SGOT) 15 U/L (15-37) Alanine Aminotransferase (ALT/SGPT) 16 U/L (12-78) Alkaline Phosphatase 80 U/L (46-116) Total Creatine Kinase 36 U/L (26-308) C-Reactive Protein, Quantitative < 0.4 mg/dL (0.00-0.90) Pro-B-Type Natriuretic Peptide 6517 pg/mL (0-125) H Total Protein 6.8 G/DL (6.4-8.2) Albumin 3.3 G/DL (3.4-5.0) L Globulin 3.5 g/dL Albumin/Globulin Ratio 0.9 (1.0-2.7) L Triglycerides Level 87 MG/DL (30-150) Cholesterol Level 118 MG/DL (< 200) LDL Cholesterol 57 mg/dL (<100) HDL Cholesterol 41 MG/DL (40-60) Cholesterol/HDL Ratio 2.9 (3.3-4.4) L Amylase Level 51 U/L (25-115) Lipase 262 U/L (73-393) Studies Pre-op Studies: EKG - afib Risk Assessment & Plan Assessment: ASA III Plan: MAC Status Change Before Surgery: No Pre-Antibiotics Drug: N/A Aislinn Saldana MD Jun 13, 2020 09:53
[2020-06-13] MEDS: Sertraline 50mg tab ORAL SCH (10:10)
[2020-06-13] MEDS: Pantoprazole Inj IVP SCH ×2 (10:10→21:12)
[2020-06-13] MEDS: Carvedilol 25mg Tab ORAL SCH ×2 (10:12→21:12)
[2020-06-13] MEDS ORDERED: Labetalol 5mg/ml 20ml vial IV PRN (11:30)
[2020-06-13] MEDS ORDERED: LR 1000ml 1,000 ML IVLG SCH (11:30)
[2020-06-13] MEDS ORDERED: DiphenhydrAMINE 50mg/ml Inj IVP PRN (11:30)
--- NOTE | 2020-06-13 11:54 | Pulmonology Progress Note ---
Subjective ROS Limited/Unobtainable: No Constitutional: Reports: no symptoms HEENT: Repors: no symptoms Allergies: Coded Allergies: No Known Allergies (Unverified , 04/10/20) Objective Last 24 Hour Vital Signs Date Time Temp Pulse Resp B/P (MAP) Pulse Ox O2 Delivery O2 Flow Rate FiO2 06/13/20 10:12 74 157/69 06/13/20 08:04 131/69 06/13/20 08:00 97.9 74 20 157/69 (98) 100 06/13/20 04:00 97.9 66 18 128/61 (83) 96 06/13/20 04:00 63 06/13/20 00:00 97.1 72 20 125/56 (79) 99 06/13/20 00:00 63 06/12/20 21:41 146/62 06/12/20 21:29 76 152/66 06/12/20 21:00 Room Air 06/12/20 20:00 70 06/12/20 16:00 66 06/12/20 15:49 97.4 66 20 145/65 (91) 96 06/12/20 13:22 141/62 06/12/20 12:28 69 06/12/20 12:00 98.1 68 18 134/55 (81) 97 Intake and Output 06/12/20 06/13/20 19:00 07:00 Intake Total 975 ml 1110 ml Balance 975 ml 1110 ml Intake Oral 60 ml IV Total 975 ml 1050 ml # Voids 4 4 General Appearance: WD/WN HEENT: normocephalic, anicteric Respiratory: chest wall non-tender, lungs clear Cardiovascular: normal peripheral pulses, normal rate, regular rhythm Abdomen: normal bowel sounds, soft, non tender Genitourinary: normal external genitalia Extremities: no clubbing Skin: no rash Microbiology Date/Time Source Procedure Growth Status 06/12/20 15:30 Nasopharynx SARS-CoV-2 RdRp Gene Assay - Final Complete Laboratory Tests 06/12/20 12:06: Urine Random Sodium 47 06/12/20 14:00: White Blood Count 6.3, Red Blood Count 3.77L, Hemoglobin 10.6L, Hematocrit 33.3L , Mean Corpuscular Volume 88, Mean Corpuscular Hemoglobin 28.2, Mean Corpuscular Hemoglobin Concent 31.9L, Red Cell Distribution Width 15.5H, Platelet Count 159, Mean Platelet Volume 8.9, Neutrophils (%) (Auto) 76.4H, Lymphocytes (%) (Auto) 13.7L, Monocytes (%) (Auto) 6.6, Eosinophils (%) (Auto) 2.1, Basophils (%) (Auto) 1.1, Sodium Level 139, Potassium Level 3.4L, Chloride Level 101, Carbon Dioxide Level 29, Blood Urea Nitrogen 84H, Creatinine 1.9H, Estimat Glomerular Filtration Rate 25.5, Glucose Level 149H, Calcium Level 9.1, Iron Level 39L, Total Iron Binding Capacity 240L, Percent Iron Saturation 16, Unsaturated Iron Binding 201, Ferritin 50, Vitamin B12 Level 790, Folate 12.4, Thyroid Stimulating Hormone (TSH) 1.512 06/13/20 06:19: White Blood Count 6.3, Red Blood Count 3.82L, Hemoglobin 10.9L, Hematocrit 33.2L , Mean Corpuscular Volume 87, Mean Corpuscular Hemoglobin 28.6, Mean Corpuscular Hemoglobin Concent 32.8, Red Cell Distribution Width 15.4H, Platelet Count 156, Mean Platelet Volume 8.6, Neutrophils (%) (Auto) 75.1H, Lymphocytes (%) (Auto) 13.8L, Monocytes (%) (Auto) 7.2, Eosinophils (%) (Auto) 2.4, Basophils (%) (A uto) 1.5, Sodium Level 140, Potassium Level 4.0, Chloride Level 103, Carbon Dioxide Level 31, Blood Urea Nitrogen 77H, Creatinine 1.9H, Estimat Glomerular Filtration Rate 25.5, Glucose Level 149H, Calcium Level 9.0, Prothrombin Time 12.1H, Prothromb Time International Ratio 1.1, Activated Partial Thromboplast Time 27, Anion Gap 6, Hemoglobin A1c 6.3H, Uric Acid 10.0H, Phosphorus Level 3.9, Magnesium Level 2.1, Total Bilirubin 0.3, Gamma Glutamyl Transpeptidase 41, Aspartate Amino Transf (AST/SGOT) 15, Alanine Aminotransferase (ALT/SGPT) 16, Alkaline Phosphatase 80, Total Creatine Kinase 36, C-Reactive Protein, Quantitative < 0.4, Pro-B-Type Natriuretic Peptide 6517H, Total Protein 6.8, Albumin 3.3L, Globulin 3.5, Albumin/Globulin Ratio 0.9L, Triglycerides Level 87, Cholesterol Level 118, LDL Cholesterol 57, HDL Cholesterol 41, Cholesterol/HDL Ratio 2.9L, Amylase Level 51, Lipase 262 Current Medications Medications (Trade) Dose Ordered Sig/Fidel Route PRN Reason Start Time Stop Time Status Last Admin Dose Admin Acetaminophen (Tylenol) 650 mg Q4H PRN ORAL fever 06/12/20 00:30 07/12/20 00:29 Acetaminophen (Tylenol) 650 mg Q4H PRN ORAL Mild Pain (Pain Scale 1-3) 06/13/20 11:30 06/13/20 18:00 Carvedilol (Coreg) 25 mg EVERY 12 HOURS ORAL 06/12/20 09:00 07/12/20 08:59 06/13/20 10:12 Dextrose (Dextrose 50%) 25 ml Q30M PRN IV Hypoglycemia 06/12/20 00:30 09/10/20 00:29 Dextrose (Dextrose 50%) 50 ml Q30M PRN IV Hypoglycemia 06/12/20 00:30 09/10/20 00:29 Dextrose/Sodium Chloride 1,000 ml @ 75 mls/hr [id number] IV 06/12/20 10:30 07/12/20 10:29 06/13/20 08:03 Diphenhydramine HCl (Benadryl) 25 mg Q15M PRN IVP Itching 06/13/20 11:30 06/13/20 18:00 Diphenhydramine HCl (Benadryl) 25 mg Q6H PRN ORAL Itching/Pruritis 06/12/20 00:30 07/12/20 00:29 Docusate Sodium (Colace) 100 mg BIDPRN PRN ORAL Constipation 06/12/20 10:30 07/12/20 10:29 Gabapentin (Neurontin) 100 mg BID ORAL 06/12/20 09:00 07/12/20 08:59 06/13/20 10:10 Hydralazine HCl (Apresoline) 5 mg Q30M PRN IV SBP>160 /DBP>90 06/13/20 11:30 06/13/20 18:00 Hydralazine HCl (Apresoline) 50 mg EVERY 8 HOURS ORAL 06/12/20 06:00 3/3/21 05:59 06/13/20 08:04 Insulin Aspart (NovoLOG) BEFORE MEALS AND HS SUBQ 06/12/20 06:30 09/10/20 06:29 06/13/20 08:06 Labetalol HCl (Normodyne) 5 mg Q10M PRN IV SBP>160 / DBP>90 06/13/20 11:30 06/13/20 18:00 Lactated Ringer's 1,000 ml @ 10 mls/hr Q24H IVLG 06/13/20 11:30 06/13/20 13:29 Levothyroxine Sodium (Synthroid) 75 mcg DAILY@0630 ORAL 06/12/20 06:30 07/12/20 06:29 06/13/20 08:04 Nitroglycerin (Ntg) 0.4 mg Q5M X 3 DOSES PRN SL Prn Chest Pain 06/12/20 00:30 07/12/20 00:29 Ondansetron HCl (Zofran) 4 mg Q1H PRN IVP Nausea & Vomiting 06/13/20 11:30 06/13/20 18:00 Ondansetron HCl (Zofran) 4 mg Q6H PRN IVP Nausea & Vomiting 06/12/20 00:30 07/12/20 00:29 Pantoprazole (Protonix) 40 mg EVERY 12 HOURS IVP 06/12/20 10:45 07/12/20 10:44 06/13/20 10:10 Polyethylene Glycol (Miralax) 17 gm HSPRN PRN ORAL Constipation 06/12/20 00:30 07/12/20 00:29 06/12/20 18:09 Sertraline HCl (Zoloft) 50 mg DAILY ORAL 06/12/20 09:00 07/12/20 08:59 06/13/20 10:10 Sucralfate (Carafate) 1 gm AC+HS ORAL 06/12/20 06:30 09/10/20 06:29 06/13/20 08:04 Temazepam (Restoril) 15 mg HSPRN PRN ORAL Insomnia 06/12/20 00:30 06/19/20 00:29 Assessment/Plan Problems: (1) GI (gastrointestinal bleed) (2) Acute dehydration (3) Renal failure (ARF), acute on chronic (4) Anemia (5) Diabetes mellitus (6) HTN (hypertension) (7) Hypothyroidism Assessment/Plan for endoscopy today \NPO iv fluids check electrolytes prbc prn keep in teli GI evaluation hold all antigoaculations Cassy Blackburn MD Jun 13, 2020 11:54
[2020-06-13] MEDS ORDERED: Lidocaine 1% MPF 10mg/ml 5ml ONE (12:00)
--- NOTE | 2020-06-13 12:00 | NUR ---
NURSE NOTES: Patient left for EGD.
[2020-06-13] MEDS ORDERED: NS 500ML IVPB ONE (12:20)
--- NOTE | 2020-06-13 12:26 | Pre-Procedure Note/Attestation ---
Pre-Procedure Note/Attestation Complete Prior to Procedure Planned Procedure: not applicable Procedure Narrative: enteroscopy Indications for Procedure Pre-Operative Diagnosis: Anemia Attestation I attest that I discussed the nature of the procedure; its benefits; risks and complications; and alternatives (and the risks and benefits of such alternatives), prior to the procedure, with the patient (or the patient's legal bilingual inside sales representative). I attest that, if there was a reasonable possibility of needing a blood transf usion, the patient (or the patient's legal bilingual inside sales representative) was given the [facility] standardized written summary, pursuant to the [place] Blood Safety Act ([place] Health and Safety Code # 1645, as amended). I attest that I re-evaluated the patient just prior to the surgery and that there has been no change in the patient's H&P, except as documented below: Wang Kruger MD Jun 13, 2020 12:26
--- NOTE | 2020-06-13 12:49 | Endoscopy Procedure Note ---
Endoscopy Procedure Note General Indication for Procedure: anemia Procedures Performed: EGD, colonoscopy Operative Findings/Diagnosis: gastitis, gastric polyp Specimen: yes Pt Tolerated Procedure Well: Yes Estimated Blood Loss: none Anesthesia Anesthesiologist: sharath Anesthesia: MAC Inserted Devices Implant(s) used?: No GI Core Measures 50 yrs or older w/o bx or poly: Not Applicable 10yrs. F/U recommended: Not Applicable Wang Kruger MD Jun 13, 2020 12:49
--- NOTE | 2020-06-13 12:50 | Immediate Post-Op Evaluation ---
Immediate Post-Op Evalulation Immediate Post-Op Evalulation Procedure: EGD Date of Evaluation: Jun 13, 2020 Time of Evaluation: 12:51 IV Fluids: 200 Blood Products: 0 Estimated Blood Loss: 0 Urinary Output: 0 Blood Pressure Systolic: 136 Blood Pressure Diastolic: 87 Pulse Rate: 71 Respiratory Rate: 16 O2 Sat by Pulse Oximetry: 100 Temperature (Fahrenheit): 36.6 Pain Score (1-10): 0 Nausea: No Vomiting: No Complications 0 Patient Status: awake, reacts, patent, none Hydration Status: adequate Drug: N/A Aislinn Saldana MD Jun 13, 2020 12:50
--- NOTE | 2020-06-13 12:51 | 48 Hour Post Anesthesia Eval ---
Post Anesthesia Evaluation Procedure: EGD Date of Evaluation: Jun 13, 2020 Airway: patent Nausea: No Vomiting: No Pain Intensity: 0 Hydration Status: adequate Cardiopulmonary Status: at baseline Mental Status/LOC: patient returned to baseline Post-Anesthesia Complications: 0 Follow-up care needed: ready to discharge Aislinn Saldana MD Jun 13, 2020 12:51
--- NOTE | 2020-06-13 13:22 | Nephrology Progress Note ---
Assessment/Plan Problem List: (1) Renal failure (ARF), acute on chronic (2) Anemia (3) Acute dehydration (4) Gastrointestinal bleeding (5) Diabetes mellitus (6) Chronic atrial fibrillation (7) Hypothyroidism Assessment Acute renal failure, superimposed on CKD Dehydration Anemia, GI bleed History of atrial fibrillation UTI Diabetes mellitus Hypothyroidism Plan June 13: Labs reviewed. Medication list reviewed. Serum creatinine 1.9 stable. Continue per consultants. PETTY Findings: Right kidney measures 7.9 cm in length. Left kidney measures 9.1 cm in length. Both kidneys demonstrate normal echogenicity with lobulated contours. No hydronephrosis. There is a small cyst in the right kidney. Partially obscured inferior vena cava. Bladder is normal. There is incidental finding of a gallstone within the gallbladder Impression: Small right kidney Negative for hydronephrosis Small right renal cyst is incidentally noted. Cholelithiasis. June 12: Slow hydrate Monitor renal parameters Monitor hemoglobin hematocrit Antibiotics 2D echocardiogram Kidney ultrasound Check TSH, lipid panel, anemia work-up, hemoglobin A1c Per consultants Per orders Subjective ROS Limited/Unobtainable: No Constitutional: Reports: malaise Objective Objective Last 24 Hour Vital Signs Date Time Temp Pulse Resp B/P (MAP) Pulse Ox O2 Delivery O2 Flow Rate FiO2 06/13/20 12:56 60 20 131/63 100 Nasal Cannula 3 06/13/20 12:51 67 20 129/42 100 Nasal Cannula 3 06/13/20 12:50 71 16 100 06/13/20 12:46 97.6 71 16 136/87 100 Nasal Cannula 3 06/13/20 12:00 98.1 63 18 162/85 (110) 96 06/13/20 10:12 74 157/69 06/13/20 08:04 131/69 06/13/20 08:00 97.9 74 20 157/69 (98) 100 06/13/20 04:00 97.9 66 18 128/61 (83) 96 06/13/20 04:00 63 06/13/20 00:00 97.1 72 20 125/56 (79) 99 06/13/20 00:00 63 06/12/20 21:41 146/62 06/12/20 21:29 76 152/66 06/12/20 21:00 Room Air 06/12/20 20:00 70 06/12/20 16:00 66 06/12/20 15:49 97.4 66 20 145/65 (91) 96 06/12/20 13:22 141/62 Intake and Output 06/12/20 06/13/20 19:00 07:00 Intake Total 975 ml 1110 ml Balance 975 ml 1110 ml Intake Oral 60 ml IV Total 975 ml 1050 ml # Voids 4 4 Current Medications Medications (Trade) Dose Ordered Sig/Fidel Route PRN Reason Start Time Stop Time Status Last Admin Dose Admin Acetaminophen (Tylenol) 650 mg Q4H PRN ORAL fever 06/12/20 00:30 07/12/20 00:29 Acetaminophen (Tylenol) 650 mg Q4H PRN ORAL Mild Pain (Pain Scale 1-3) 06/13/20 11:30 06/13/20 18:00 Carvedilol (Coreg) 25 mg EVERY 12 HOURS ORAL 06/12/20 09:00 07/12/20 08:59 06/13/20 10:12 Dextrose (Dextrose 50%) 25 ml Q30M PRN IV Hypoglycemia 06/12/20 00:30 09/10/20 00:29 Dextrose (Dextrose 50%) 50 ml Q30M PRN IV Hypoglycemia 06/12/20 00:30 09/10/20 00:29 Dextrose/Sodium Chloride 1,000 ml @ 75 mls/hr [id number] IV 06/12/20 10:30 07/12/20 10:29 06/13/20 08:03 Diphenhydramine HCl (Benadryl) 25 mg Q15M PRN IVP Itching 06/13/20 11:30 06/13/20 18:00 Diphenhydramine HCl (Benadryl) 25 mg Q6H PRN ORAL Itching/Pruritis 06/12/20 00:30 07/12/20 00:29 Docusate Sodium (Colace) 100 mg BIDPRN PRN ORAL Constipation 06/12/20 10:30 07/12/20 10:29 Gabapentin (Neurontin) 100 mg BID ORAL 06/12/20 09:00 07/12/20 08:59 06/13/20 10:10 Hydralazine HCl (Apresoline) 5 mg Q30M PRN IV SBP>160 /DBP>90 06/13/20 11:30 06/13/20 18:00 Hydralazine HCl (Apresoline) 50 mg EVERY 8 HOURS ORAL 06/12/20 06:00 09/10/20 05:59 06/13/20 08:04 Insulin Aspart (NovoLOG) BEFORE MEALS AND HS SUBQ 06/12/20 06:30 09/10/20 06:29 06/13/20 08:06 Labetalol HCl (Normodyne) 5 mg Q10M PRN IV SBP>160 / DBP>90 06/13/20 11:30 06/13/20 18:00 Lactated Ringer's 1,000 ml @ 10 mls/hr Q24H IVLG 06/13/20 11:30 06/13/20 13:29 Levothyroxine Sodium (Synthroid) 75 mcg DAILY@0630 ORAL 06/12/20 06:30 07/12/20 06:29 06/13/20 08:04 Nitroglycerin (Ntg) 0.4 mg Q5M X 3 DOSES PRN SL Prn Chest Pain 06/12/20 00:30 07/12/20 00:29 Ondansetron HCl (Zofran) 4 mg Q1H PRN IVP Nausea & Vomiting 06/13/20 11:30 06/13/20 18:00 Ondansetron HCl (Zofran) 4 mg Q6H PRN IVP Nausea & Vomiting 06/12/20 00:30 07/12/20 00:29 Pantoprazole (Protonix) 40 mg EVERY 12 HOURS IVP 06/12/20 10:45 07/12/20 10:44 06/13/20 10:10 Polyethylene Glycol (Miralax) 17 gm HSPRN PRN ORAL Constipation 06/12/20 00:30 07/12/20 00:29 06/12/20 18:09 Sertraline HCl (Zoloft) 50 mg DAILY ORAL 06/12/20 09:00 07/12/20 08:59 06/13/20 10:10 Sucralfate (Carafate) 1 gm AC+HS ORAL 06/12/20 06:30 09/10/20 06:29 06/13/20 08:04 Temazepam (Restoril) 15 mg HSPRN PRN ORAL Insomnia 06/12/20 00:30 06/19/20 00:29 Laboratory Tests 06/12/20 14:00: White Blood Count 6.3, Red Blood Count 3.77L, Hemoglobin 10.6L, Hematocrit 33.3L , Mean Corpuscular Volume 88, Mean Corpuscular Hemoglobin 28.2, Mean Corpuscular Hemoglobin Concent 31.9L, Red Cell Distribution Width 15.5H, Platelet Count 159, Mean Platelet Volume 8.9, Neutrophils (%) (Auto) 76.4H, Lymphocytes (%) (Auto) 13.7L, Monocytes (%) (Auto) 6.6, Eosinophils (%) (Auto) 2.1, Basophils (%) (Auto) 1.1, Sodium Level 139, Potassium Level 3.4L, Chloride Level 101, Carbon Dioxide Level 29, Blood Urea Nitrogen 84H, Creatinine 1.9H, Estimat Glomerular Filtration Rate 25.5, Glucose Level 149H, Calcium Level 9.1, Iron Level 39L, Total Iron Binding Capacity 240L, Percent Iron Saturation 16, Unsaturated Iron Binding 201, Ferritin 50, Vitamin B12 Level 790, Folate 12.4, Thyroid Stimulating Hormone (TSH) 1.512 06/13/20 06:19: White Blood Count 6.3, Red Blood Count 3.82L, Hemoglobin 10.9L, Hematocrit 33.2L , Mean Corpuscular Volume 87, Mean Corpuscular Hemoglobin 28.6, Mean Corpuscular Hemoglobin Concent 32.8, Red Cell Distribution Width 15.4H, Platelet Count 156, Mean Platelet Volume 8.6, Neutrophils (%) (Auto) 75.1H, Lymphocytes (%) (Auto) 13.8L, Monocytes (%) (Auto) 7.2, Eosinophils (%) (Auto) 2.4, Basophils (%) (Auto) 1.5, Sodium Level 140, Potassium Level 4.0, Chloride Level 103, Carbon Dioxide Level 31, Blood Urea Nitrogen 77H, Creatinine 1.9H, Estimat Glomerular Filtration Rate 25.5, Glucose Level 149H, Calcium Level 9.0, Prothrombin Time 12.1H, Prothromb Time International Ratio 1.1, Activated Partial Thromboplast Time 27, Anion Gap 6, Hemoglobin A1c 6.3H, Uric Acid 10.0H, Phosphorus Level 3.9, Magnesium Level 2.1, Total Bilirubin 0.3, Gamma Glutamyl Transpeptidase 41, Aspartate Amino Transf (AST/SGOT) 15, Alanine Aminotransferase (ALT/SGPT) 16, Alkaline Phosphatase 80, Total Creatine Kinase 36, C-Reactive Protein, Quantitative < 0.4, Pro-B-Type Natriuretic Peptide 6517H, Total Protein 6.8, Albumin 3.3L, Globulin 3.5, Albumin/Globulin Ratio 0.9L, Triglycerides Level 87, Cholesterol Level 118, LDL Cholesterol 57, HDL Cholesterol 41, Cholesterol/HDL Ratio 2.9L, Amylase Level 51, Lipase 262 Height (Feet): 5 Height (Inches): 0.00 Weight (Pounds): 199 General Appearance: no apparent distress Cardiovascular: normal rate Respiratory/Chest: decreased breath sounds Abdomen: distended Caleb Agudelo MD Jun 13, 2020 13:22
--- NOTE | 2020-06-13 13:52 | NUR ---
NURSE NOTES: Patient back from EGD. Patient is AO x 4 and shows no signs of distress .
--- NOTE | 2020-06-13 17:15 | Procedure Note ---
DATE OF PROCEDURE: 06/13/2020 SURGEON: Wang Kruger MD PROCEDURE: Enteroscopy. ANESTHESIA: Per Dr. Saldana. INSTRUMENT: Olympus adult flexible enteroscope. INDICATION: Anemia. The procedure, risks, benefits, and possible consequences, including hemorrhage, aspiration, perforation and infection, and alternative treatments, were explained to the patient/legal guardian by Dr. Wang Kruger and the patient/legal guardian understood and accepted these risks. DESCRIPTION OF PROCEDURE: After informed consent was obtained and the patient was adequately sedated, was advanced from the mouth into the fourth portion of the duodenum. The patient had 2 polyps in the antrum of the stomach, which were biopsied. These polyps were roughly measuring about 5 mm to 6 mm, both. The patient had evidence of diffuse mild gastritis. Random biopsies from antrum were obtained to rule out H. pylori infection. Duodenal mucosa grossly looked within normal limits. Biopsy from the duodenum was obtained for evaluation of celiac disease. The patient tolerated the procedure very well without any complications. SUMMARY OF FINDINGS: 1. Two antrum polyps, status post biopsy. 2. Gastritis, status post biopsy. 3. Status post biopsy of duodenum to rule out celiac disease. RECOMMENDATIONS: Follow up biopsy results and treat accordingly. I want to thank Dr. Pabon for this kind referral. Wang Kruger M.D. DR: RONALD JOB#: [id number] CC: Poppy Pabon MD; Fax#: [phone]
--- NOTE | 2020-06-13 19:21 | NUR ---
NURSE HAND-OFF REPORT: Important Events on Shift:[EGD done.] Patient Status: [Full code] Diet: [Cardiac] Pending Orders: [] Pending Results/Labs:[] Pending MD notification:[] Latest Vital Signs: Temperature 97.9 , Pulse 66 , B/P 149 /64 , Respiratory Rate 20 , O2 SAT 96 , Nasal Cannula, O2 Flow Rate 3 . Vital Sign Comment: [] EKG Rhythm: A-Fib with BBB Rhythm change?: N MD Notified?: - MD Response: Latest Lopez Fall Score: 70 Fall Risk: High Risk Safety Measures: Call light Within Reach, Bed Alarm Zone 1, Side Rails Side Rails x2, Bed position Low and Locked. Fall Precautions: Yellow Socks Yellow Gown Door Sign Patient Fall Education Report given to [Jorden, RN].
--- NOTE | 2020-06-13 19:25 | NUR ---
NURSE NOTES: Pt received from LUL[facility] Brock alert and oriented x4, primarily Maori-speaking with no acute s/s of distress noted. IV site on L wrist 22g, asymptomatic and patent - running to D51/2NS at 75. Bed in lowest position, call light and belongings within reach.
--- NOTE | 2020-06-13 22:32 | General Progress Note ---
Subjective Allergies: Coded Allergies: No Known Allergies (Unverified , 04/10/20) Subjective Above noted had EGD today no large ulcers some gastritis noted Objective Last 24 Hour Vital Signs Date Time Temp Pulse Resp B/P (MAP) Pulse Ox O2 Delivery O2 Flow Rate FiO2 06/13/20 21:12 149/63 06/13/20 21:12 74 149/63 06/13/20 21:00 Room Air 06/13/20 20:00 97.3 74 20 149/63 (91) 94 06/13/20 16:00 66 06/13/20 16:00 97.9 72 20 149/64 (92) 96 06/13/20 14:45 162/85 06/13/20 13:06 97.9 73 16 135/62 100 Nasal Cannula 3 06/13/20 12:56 60 20 131/63 100 Nasal Cannula 3 06/13/20 12:51 67 20 129/42 100 Nasal Cannula 3 06/13/20 12:50 71 16 100 06/13/20 12:46 97.6 71 16 136/87 100 Nasal Cannula 3 06/13/20 12:00 68 06/13/20 12:00 98.1 63 18 162/85 (110) 96 06/13/20 10:12 74 157/69 06/13/20 09:00 Room Air 06/13/20 08:04 131/69 06/13/20 08:00 63 06/13/20 08:00 97.9 74 20 157/69 (98) 100 06/13/20 04:00 97.9 66 18 128/61 (83) 96 06/13/20 04:00 63 06/13/20 00:00 97.1 72 20 125/56 (79) 99 06/13/20 00:00 63 Intake and Output 06/12/20 06/13/20 19:00 07:00 Intake Total 975 ml 1635 ml Balance 975 ml 1635 ml Intake Oral 60 ml IV Total 975 ml 1575 ml # Voids 4 4 Laboratory Tests 06/13/20 06:19: White Blood Count 6.3, Red Blood Count 3.82L, Hemoglobin 10.9L, Hematocrit 33.2L , Mean Corpuscular Volume 87, Mean Corpuscular Hemoglobin 28.6, Mean Corpuscular Hemoglobin Concent 32.8, Red Cell Distribution Width 15.4H, Platelet Count 156, Mean Platelet Volume 8.6, Neutrophils (%) (Auto) 75.1H, Lymphocytes (%) (Auto) 13.8L, Monocytes (%) (Auto) 7.2, Eosinophils (%) (Auto) 2.4, Basophils (%) (Auto) 1.5, Prothrombin Time 12.1H, Prothromb Time International Ratio 1.1, Activated Partial Thromboplast Time 27, Sodium Level 140, Potassium Level 4.0, Chloride Level 103, Carbon Dioxide Level 31, Anion Gap 6, Blood Urea Nitrogen 77H, Creatinine 1.9H, Estimat Glomerular Filtration Rate 25.5, Glucose Level 149H, Hemoglobin A1c 6.3H, Uric Acid 10.0H, Calcium Level 9.0, Phosphorus Level 3.9, Magnesium Level 2.1, Total Bilirubin 0.3, Gamma Glutamyl Transpeptidase 41, Aspartate Amino Transf (AST/SGOT) 15, Alanine Aminotransferase (ALT/SGPT) 16, Alkaline Phosphatase 80, Total Creatine Kinase 36, C-Reactive Protein, Quantitative < 0.4, Pro-B-Type Natriuretic Peptide 6517H, Total Protein 6.8, Albumin 3.3L, Globulin 3.5, Albumin/Globulin Ratio 0.9L, Triglycerides Level 87, Cholesterol Level 118, LDL Cholesterol 57, HDL Cholesterol 41, Cholesterol/HDL Ratio 2.9L, Amylase Level 51, Lipase 262 Height (Feet): 5 Height (Inches): 0.00 Weight (Pounds): 199 Assessment/Plan Assessment/Plan: Assessment - GI Bleed - anemia - h/o gastric polyps - gastritis Recommendations - PPI - PO diet - follow labs - further w/u if bleeding continues Poppy Pabon MD Jun 13, 2020 22:32
--- NOTE | 2020-06-13 22:34 | General Progress Note ---
Subjective Allergies: Coded Allergies: No Known Allergies (Unverified , 04/10/20) Subjective Above noted had EGD today no large ulcers some gastritis noted Objective Last 24 Hour Vital Signs Date Time Temp Pulse Resp B/P (MAP) Pulse Ox O2 Delivery O2 Flow Rate FiO2 06/13/20 21:12 149/63 06/13/20 21:12 74 149/63 06/13/20 21:00 Room Air 06/13/20 20:00 97.3 74 20 149/63 (91) 94 06/13/20 16:00 66 06/13/20 16:00 97.9 72 20 149/64 (92) 96 06/13/20 14:45 162/85 06/13/20 13:06 97.9 73 16 135/62 100 Nasal Cannula 3 06/13/20 12:56 60 20 131/63 100 Nasal Cannula 3 06/13/20 12:51 67 20 129/42 100 Nasal Cannula 3 06/13/20 12:50 71 16 100 06/13/20 12:46 97.6 71 16 136/87 100 Nasal Cannula 3 06/13/20 12:00 68 06/13/20 12:00 98.1 63 18 162/85 (110) 96 06/13/20 10:12 74 157/69 06/13/20 09:00 Room Air 06/13/20 08:04 131/69 06/13/20 08:00 63 06/13/20 08:00 97.9 74 20 157/69 (98) 100 06/13/20 04:00 97.9 66 18 128/61 (83) 96 06/13/20 04:00 63 06/13/20 00:00 97.1 72 20 125/56 (79) 99 06/13/20 00:00 63 Intake and Output 06/12/20 06/13/20 19:00 07:00 Intake Total 975 ml 1635 ml Balance 975 ml 1635 ml Intake Oral 60 ml IV Total 975 ml 1575 ml # Voids 4 4 Laboratory Tests 06/13/20 06:19: White Blood Count 6.3, Red Blood Count 3.82L, Hemoglobin 10.9L, Hematocrit 33.2L , Mean Corpuscular Volume 87, Mean Corpuscular Hemoglobin 28.6, Mean Corpuscular Hemoglobin Concent 32.8, Red Cell Distribution Width 15.4H, Platelet Count 156, Mean Platelet Volume 8.6, Neutrophils (%) (Auto) 75.1H, Lymphocytes (%) (Auto) 13.8L, Monocytes (%) (Auto) 7.2, Eosinophils (%) (Auto) 2.4, Basophils (%) (Auto) 1.5, Prothrombin Time 12.1H, Prothromb Time International Ratio 1.1, Activated Partial Thromboplast Time 27, Sodium Level 140, Potassium Level 4.0, Chloride Level 103, Carbon Dioxide Level 31, Anion Gap 6, Blood Urea Nitrogen 77H, Creatinine 1.9H, Estimat Glomerular Filtration Rate 25.5, Glucose Level 149H, Hemoglobin A1c 6.3H, Uric Acid 10.0H, Calcium Level 9.0, Phosphorus Level 3.9, Magnesium Level 2.1, Total Bilirubin 0.3, Gamma Glutamyl Transpeptidase 41, Aspartate Amino Transf (AST/SGOT) 15, Alanine Aminotransferase (ALT/SGPT) 16, Alkaline Phosphatase 80, Total Creatine Kinase 36, C-Reactive Protein, Quantitative < 0.4, Pro-B-Type Natriuretic Peptide 6517H, Total Protein 6.8, Albumin 3.3L, Globulin 3.5, Albumin/Globulin Ratio 0.9L, Triglycerides Level 87, Cholesterol Level 118, LDL Cholesterol 57, HDL Cholesterol 41, Cholesterol/HDL Ratio 2.9L, Amylase Level 51, Lipase 262 Height (Feet): 5 Height (Inches): 0.00 Weight (Pounds): 199 Objective WDWN L woman NCAT sujpple CTA RR abd soft and ND no edema Assessment/Plan Assessment/Plan: Assessment - GI Bleed - anemia Poppy Pabon MD Jun 13, 2020 22:34
[2020-06-14] VITALS: BP 149/67
[2020-06-14] MEDS: D5NS 1,000 ML IV SCH ×2 (00:33→16:43)
[2020-06-14 04:00] VITALS: BP 138/68
[2020-06-14] MEDS: Sucralfate 1gm tab ORAL SCH ×4 (06:00→20:54)
[2020-06-14] MEDS: HydrALAZINE 50mg tab ORAL SCH ×3 (06:00→22:43)
[2020-06-14] MEDS: NovoLOG Insulin Flexpen SUBQ SCH ×4 (06:05→20:54)
--- NOTE | 2020-06-14 06:24 | General Progress Note ---
Subjective ROS Limited/Unobtainable: Yes Allergies: Coded Allergies: No Known Allergies (Unverified , 04/10/20) Objective Last 24 Hour Vital Signs Date Time Temp Pulse Resp B/P (MAP) Pulse Ox O2 Delivery O2 Flow Rate FiO2 06/14/20 06:00 138/68 06/14/20 04:00 97.5 74 20 138/68 (91) 96 06/14/20 04:00 66 06/14/20 00:00 69 06/14/20 00:00 97.4 80 20 149/67 (94) 96 06/13/20 21:12 149/63 06/13/20 21:12 74 149/63 06/13/20 21:00 Room Air 06/13/20 20:00 97.3 74 20 149/63 (91) 94 06/13/20 20:00 61 06/13/20 16:00 66 06/13/20 16:00 97.9 72 20 149/64 (92) 96 06/13/20 14:45 162/85 06/13/20 13:06 97.9 73 16 135/62 100 Nasal Cannula 3 06/13/20 12:56 60 20 131/63 100 Nasal Cannula 3 06/13/20 12:51 67 20 129/42 100 Nasal Cannula 3 06/13/20 12:50 71 16 100 06/13/20 12:46 97.6 71 16 136/87 100 Nasal Cannula 3 06/13/20 12:00 68 06/13/20 12:00 98.1 63 18 162/85 (110) 96 06/13/20 10:12 74 157/69 06/13/20 09:00 Room Air 06/13/20 08:04 131/69 06/13/20 08:00 63 06/13/20 08:00 97.9 74 20 157/69 (98) 100 Intake and Output 06/13/20 06/14/20 19:00 07:00 Intake Total 1086.2 ml 990 ml Balance 1086.2 ml 990 ml Intake Oral 140 ml 240 ml IV Total 946.2 ml 750 ml # Voids 6 7 Height (Feet): 5 Height (Inches): 0.00 Weight (Pounds): 199 General Appearance: no apparent distress EENT: normal ENT inspection Neck: supple Cardiovascular: normal rate Respiratory/Chest: decreased breath sounds Abdomen: normal bowel sounds, non tender, soft Extremities: non-tender Assessment/Plan Problem List: (1) Anemia ICD Codes: D64.9 - Anemia, unspecified SNOMED: 486877888 (2) DMII (diabetes mellitus, type 2) ICD Codes: E11.9 - Type 2 diabetes mellitus without complications SNOMED: 56974640 (3) HTN (hypertension) ICD Codes: I10 - Essential (primary) hypertension SNOMED: 79393234 (4) Gastrointestinal bleeding ICD Codes: K92.2 - Gastrointestinal hemorrhage, unspecified SNOMED: 26833128 (5) Chronic atrial fibrillation ICD Codes: I48.20 - Chronic atrial fibrillation, unspecified SNOMED: 052298440 Assessment/Plan: s/p enteroscopy fu biopsy results cbc in am repeat stool ob Wang Kruger MD Jun 14, 2020 06:24
--- NOTE | 2020-06-14 07:21 | NUR ---
NURSE HAND-OFF REPORT: Important Events on Shift: Pt ambulated frequently to the BSC with assistance, fall precautions educated to the patient, pt verbalized understanding. Patient Status: Stable Diet: Cardiac Pending Orders: OB stool pending Pending Results/Labs: CBC pending Pending MD notification: n/a Latest Vital Signs: Temperature 97.5 , Pulse 66 , B/P 138 /68 , Respiratory Rate 20 , O2 SAT 96 , Room Air, O2 Flow Rate 3 . Vital Sign Comment: WNL EKG Rhythm: A-Fib with BBB Rhythm change?: N MD Notified?: - MD Response: Latest Lopez Fall Score: 70 Fall Risk: High Risk Safety Measures: Call light Within Reach, Bed Alarm Zone 1, Side Rails Side Rails x2, Bed position Low and Locked. Fall Precautions: Yellow Socks Yellow Gown Door Sign Patient Fall Education Report given to LULÚ Peterson.
[2020-06-14 07:29] LABS: BASOPHILS % (AUTO) 0.9 % (0.0-2.0); HEMOGLOBIN 10.3 G/DL (12.0-16.0); LYMPHOCYTES % (AUTO) 14.2 % (20.0-45.0); MEAN CORPUSCULAR VOLUME 86 FL (80-99); MONOCYTES % (AUTO) 7.7 % (1.0-10.0); NEUTROPHILS % (AUTO) 74.2 % (45.0-75.0); PLATELET COUNT 139 K/UL (150-450); RED CELL DISTRIBUTION WIDTH 15.6 % (11.6-14.8); WHITE BLOOD COUNT 5.6 K/UL (4.8-10.8)
--- NOTE | 2020-06-14 07:30 | NUR ---
NURSE NOTES: Received patient in bed. Awake A/O x4. On room air, respirations unlabored. Patient denies pain. IV in the Left wrist site intact, IVf infusing as ordered. Side rails up x2, call light within reach with return demonstration.
[2020-06-14 07:36] LABS: INR 1.1 (0.9-1.1)
[2020-06-14 07:54] LABS: ALBUMIN 3.2 G/DL (3.4-5.0); BILIRUBIN,TOTAL 0.2 MG/DL (0.2-1.0); CALCIUM 8.7 MG/DL (8.5-10.1); CREATININE 1.8 MG/DL (0.55-1.30); POTASSIUM 3.8 MMOL/L (3.5-5.1)
[2020-06-14 08:00] VITALS: BP 121/48
--- NOTE | 2020-06-14 08:04 | Pulmonology Progress Note ---
Subjective ROS Limited/Unobtainable: Yes Constitutional: Reports: no symptoms HEENT: Repors: no symptoms Allergies: Coded Allergies: No Known Allergies (Unverified , 04/10/20) Subjective remains afebrile, no leukocytosis pulse ox stable on RA UCX + GNR no CP, no SOB denies abd pain, n/v/ Objective Last 24 Hour Vital Signs Date Time Temp Pulse Resp B/P (MAP) Pulse Ox O2 Delivery O2 Flow Rate FiO2 06/14/20 06:00 138/68 06/14/20 04:00 97.5 74 20 138/68 (91) 96 06/14/20 04:00 66 06/14/20 00:00 69 06/14/20 00:00 97.4 80 20 149/67 (94) 96 06/13/20 21:12 149/63 06/13/20 21:12 74 149/63 06/13/20 21:00 Room Air 06/13/20 20:00 97.3 74 20 149/63 (91) 94 06/13/20 20:00 61 06/13/20 16:00 66 06/13/20 16:00 97.9 72 20 149/64 (92) 96 06/13/20 14:45 162/85 06/13/20 13:06 97.9 73 16 135/62 100 Nasal Cannula 3 06/13/20 12:56 60 20 131/63 100 Nasal Cannula 3 06/13/20 12:51 67 20 129/42 100 Nasal Cannula 3 06/13/20 12:50 71 16 100 06/13/20 12:46 97.6 71 16 136/87 100 Nasal Cannula 3 06/13/20 12:00 68 06/13/20 12:00 98.1 63 18 162/85 (110) 96 06/13/20 10:12 74 157/69 06/13/20 09:00 Room Air 06/13/20 08:04 131/69 Intake and Output 06/13/20 06/14/20 19:00 07:00 Intake Total 1086.2 ml 990 ml Balance 1086.2 ml 990 ml Intake Oral 140 ml 240 ml IV Total 946.2 ml 750 ml # Voids 6 7 General Appearance: WD/WN HEENT: normocephalic, anicteric, EOMI, supple Respiratory: chest wall non-tender, lungs clear Cardiovascular: normal peripheral pulses, normal rate, regular rhythm Abdomen: normal bowel sounds, soft, non tender Genitourinary: normal external genitalia Extremities: no cyanosis, no edema, pedal pulses normal Skin: no rash Neurologic: alert, oriented x 3, responsive Musculoskeletal: normal muscle bulk Microbiology Date/Time Source Procedure Growth Status 06/12/20 15:30 Nasopharynx SARS-CoV-2 RdRp Gene Assay - Final Complete 06/11/20 22:19 Urine,Clean Catch Urine Culture - Preliminary Gram Negative Alan Resulted Laboratory Tests 06/14/20 06:14: White Blood Count 5.6, Red Blood Count 3.60L, Hemoglobin 10.3L, Hematocrit 31.0L , Mean Corpuscular Volume 86, Mean Corpuscular Hemoglobin 28.7, Mean Corpuscular Hemoglobin Concent 33.3, Red Cell Distribution Width 15.6H, Platelet Count 139L, Mean Platelet Volume 8.9, Neutrophils (%) (Auto) 74.2, Lymphocytes (%) (Auto) 14.2L, Monocytes (%) (Auto) 7.7, Eosinophils (%) (Auto) 3.0, Basophils (%) (Auto) 0.9, Prothrombin Time 12.3H, Prothromb Time International Ratio 1.1, Activated Partial Thromboplast Time 27, Sodium Level 143, Potassium Level 3.8, Chloride Level 107, Carbon Dioxide Level 30, Anion Gap 6, Blood Urea Nitrogen 60H, Creatinine 1.8H, Estimat Glomerular Filtration Rate 27.2, Glucose Level 196H, Calcium Level 8.7, Phosphorus Level 3.0, Magnesium Level 2.1, Total Bilirubin 0.2, Aspartate Amino Transf (AST/SGOT) 13L, Alanine Aminotransferase (ALT/SGPT) 13, Alkaline Phosphatase 78, Total Protein 6.4, Albumin 3.2L, Globulin 3.2, Albumin/Globulin Ratio 1.0 Current Medications Medications (Trade) Dose Ordered Sig/Fidel Route PRN Reason Start Time Stop Time Status Last Admin Dose Admin Acetaminophen (Tylenol) 650 mg Q4H PRN ORAL fever 06/12/20 00:30 07/12/20 00:29 Carvedilol (Coreg) 25 mg EVERY 12 HOURS ORAL 06/12/20 09:00 07/12/20 08:59 06/13/20 21:12 Dextrose (Dextrose 50%) 25 ml Q30M PRN IV Hypoglycemia 06/12/20 00:30 09/10/20 00:29 Dextrose (Dextrose 50%) 50 ml Q30M PRN IV Hypoglycemia 06/12/20 00:30 09/10/20 00:29 Dextrose/Sodium Chloride 1,000 ml @ 75 mls/hr [id number] IV 06/12/20 10:30 07/12/20 10:29 06/14/20 00:33 Diphenhydramine HCl (Benadryl) 25 mg Q6H PRN ORAL Itching/Pruritis 06/12/20 00:30 07/12/20 00:29 Docusate Sodium (Colace) 100 mg BIDPRN PRN ORAL Constipation 06/12/20 10:30 07/12/20 10:29 Gabapentin (Neurontin) 100 mg BID ORAL 06/12/20 09:00 07/12/20 08:59 06/13/20 18:09 Hydralazine HCl (Apresoline) 50 mg EVERY 8 HOURS ORAL 06/12/20 06:00 09/10/20 05:59 06/14/20 06:00 Insulin Aspart (NovoLOG) BEFORE MEALS AND HS SUBQ 06/12/20 06:30 09/10/20 06:29 06/14/20 06:05 Levothyroxine Sodium (Synthroid) 75 mcg DAILY@0630 ORAL 06/12/20 06:30 07/12/20 06:29 06/14/20 06:00 Nitroglycerin (Ntg) 0.4 mg Q5M X 3 DOSES PRN SL Prn Chest Pain 06/12/20 00:30 07/12/20 00:29 Ondansetron HCl (Zofran) 4 mg Q6H PRN IVP Nausea & Vomiting 06/12/20 00:30 07/12/20 00:29 Pantoprazole (Protonix) 40 mg EVERY 12 HOURS IVP 06/12/20 10:45 07/12/20 10:44 06/13/20 21:12 Polyethylene Glycol (Miralax) 17 gm HSPRN PRN ORAL Constipation 06/12/20 00:30 07/12/20 00:29 06/12/20 18:09 Sertraline HCl (Zoloft) 50 mg DAILY ORAL 06/12/20 09:00 1/2/21 08:59 06/13/20 10:10 Sucralfate (Carafate) 1 gm AC+HS ORAL 06/12/20 06:30 09/10/20 06:29 06/14/20 06:00 Temazepam (Restoril) 15 mg HSPRN PRN ORAL Insomnia 06/12/20 00:30 06/19/20 00:29 Assessment/Plan Assessment/Plan ASSESSMENT GI bleeding s/p endoscopy Acute dehydration UTI with GNR Acute on chronic renal failure Anemia DM HTN Hypothyroidism PLAN OF CARE tele s/p endoscopy 06/13 with finding of 2 antral polyps , s/p biopsy; gastritis , s/p biopsy, also biopsy of duodenum to rule out celiac disease f/up with the biopsy results PPI and Carafate monitor H&H with goal to keep Hgb >7, anemia work-up c/w anemia of chronic disease H&H remains at the baseline consider iron- per GI recs IV fluids diet as tolerated Echo with pEF 65% no evidence of WMA tele-> A. fib with BBB , rate controlled ; hold a/c due to GI bleeding and consider restarting after GI clears consider cardio eval for further recs re a/c BP management with current regimen and optimize further as needed BS management with SSI HgbA1c 6.3 diabetic diet and diabetic teaching monitor renal parameters lytes ; correct as needed ; avoid nephrotoxic creat trending down renal ultrasound with small right kidney; no evidence of hydronephrosis UCX -> GNR , start ceftriaxone, follow-up with final UCX continue Synthroid , TSH within normal limits supportive care case discussed and evaluated by supervising physician Shaista Falk NP Jun 14, 2020 08:04
[2020-06-14] MEDS ORDERED: D5 1/2NS 1000ml IV ONE (09:12)
[2020-06-14] MEDS: Sertraline 50mg tab ORAL SCH (09:25)
[2020-06-14] MEDS: Carvedilol 25mg Tab ORAL SCH ×2 (09:26→20:53)
[2020-06-14] MEDS: Pantoprazole Inj IVP SCH ×2 (09:28→20:53)
[2020-06-14] MEDS: cefTRIAXone 1 GM in D5W 55 ML IVPB SCH (09:29)
[2020-06-14 12:00] VITALS: BP 147/54
--- NOTE | 2020-06-14 14:19 | NUR ---
NURSE NOTES: Daughter (jeanette) called and states no doctor has spoke to her regarding patient's plan. Shaista Falk contacted and Dr Kruger contacted, message left.
--- NOTE | 2020-06-14 14:26 | Nephrology Progress Note ---
Assessment/Plan Problem List: (1) Renal failure (ARF), acute on chronic (2) Anemia (3) Acute dehydration (4) Gastrointestinal bleeding (5) Diabetes mellitus (6) Chronic atrial fibrillation (7) Hypothyroidism Assessment Acute renal failure, superimposed on CKD Dehydration Anemia, GI bleed History of atrial fibrillation UTI Diabetes mellitus Hypothyroidism Plan June 14: Labs reviewed. Serum creatinine 1.8. Remains stable from renal standpoint of view. Continue per consultants. Lower IV fluid to 50 cc an hour June 13: Labs reviewed. Medication list reviewed. Serum creatinine 1.9 stable. Continue per consultants. PETTY Findings: Right kidney measures 7.9 cm in length. Left kidney measures 9.1 cm in length. Both kidneys demonstrate normal echogenicity with lobulated contours. No hydronephrosis. There is a small cyst in the right kidney. Partially o bscured inferior vena cava. Bladder is normal. There is incidental finding of a gallstone within the gallbladder Impression: Small right kidney Negative for hydronephrosis Small right renal cyst is incidentally noted. Cholelithiasis. June 12: Slow hydrate Monitor renal parameters Monitor hemoglobin hematocrit Antibiotics 2D echocardiogram Kidney ultrasound Check TSH, lipid panel, anemia work-up, hemoglobin A1c Per consultants Per orders Subjective ROS Limited/Unobtainable: No Constitutional: Reports: malaise Objective Objective Last 24 Hour Vital Signs Date Time Temp Pulse Resp B/P (MAP) Pulse Ox O2 Delivery O2 Flow Rate FiO2 06/14/20 14:00 147/54 06/14/20 12:00 61 06/14/20 12:00 97.7 66 20 147/54 (85) 96 06/14/20 09:26 69 121/48 06/14/20 09:00 Room Air 06/14/20 08:00 97.9 69 20 121/48 (72) 95 06/14/20 08:00 78 06/14/20 06:00 138/68 06/14/20 04:00 97.5 74 20 138/68 (91) 96 06/14/20 04:00 66 06/14/20 00:00 69 06/14/20 00:00 97.4 80 20 149/67 (94) 96 06/13/20 21:12 149/63 06/13/20 21:12 74 149/63 06/13/20 21:00 Room Air 06/13/20 20:00 97.3 74 20 149/63 (91) 94 06/13/20 20:00 61 06/13/20 16:00 66 06/13/20 16:00 97.9 72 20 149/64 (92) 96 06/13/20 14:45 162/85 Intake and Output 06/13/20 06/14/20 19:00 07:00 Intake Total 1086.2 ml 990 ml Balance 1086.2 ml 990 ml Intake Oral 140 ml 240 ml IV Total 946.2 ml 750 ml # Voids 6 7 Current Medications Medications (Trade) Dose Ordered Sig/Fidel Route PRN Reason Start Time Stop Time Status Last Admin Dose Admin Acetaminophen (Tylenol) 650 mg Q4H PRN ORAL fever 06/12/20 00:30 07/12/20 00:29 Carvedilol (Coreg) 25 mg EVERY 12 HOURS ORAL 06/12/20 09:00 07/12/20 08:59 06/14/20 09:26 Ceftriaxone Sodium 1 gm/ Dextrose 55 ml @ 110 mls/hr Q24H IVPB 06/14/20 09:00 06/21/20 08:59 06/14/20 09:29 Dextrose (Dextrose 50%) 25 ml Q30M PRN IV Hypoglycemia 06/12/20 00:30 09/10/20 00:29 Dextrose (Dextrose 50%) 50 ml Q30M PRN IV Hypoglycemia 06/12/20 00:30 09/10/20 00:29 Dextrose/Sodium Chloride 1,000 ml @ 75 mls/hr [id number] IV 06/12/20 10:30 07/12/20 10:29 06/14/20 00:33 Diphenhydramine HCl (Benadryl) 25 mg Q6H PRN ORAL Itching/Pruritis 06/12/20 00:30 07/12/20 00:29 Docusate Sodium (Colace) 100 mg BIDPRN PRN ORAL Constipation 06/12/20 10:30 07/12/20 10:29 Gabapentin (Neurontin) 100 mg BID ORAL 06/12/20 09:00 07/12/20 08:59 06/14/20 09:26 Hydralazine HCl (Apresoline) 50 mg EVERY 8 HOURS ORAL 06/12/20 06:00 09/10/20 05:59 06/14/20 14:00 Insulin Aspart (NovoLOG) BEFORE MEALS AND HS SUBQ 06/12/20 06:30 09/10/20 06:29 06/14/20 12:21 Levothyroxine Sodium (Synthroid) 75 mcg DAILY@0630 ORAL 06/12/20 06:30 07/12/20 06:29 06/14/20 06:00 Nitroglycerin (Ntg) 0.4 mg Q5M X 3 DOSES PRN SL Prn Chest Pain 06/12/20 00:30 07/12/20 00:29 Ondansetron HCl (Zofran) 4 mg Q6H PRN IVP Nausea & Vomiting 06/12/20 00:30 07/12/20 00:29 Pantoprazole (Protonix) 40 mg EVERY 12 HOURS IVP 06/12/20 10:45 07/12/20 10:44 06/14/20 09:28 Polyethylene Glycol (Miralax) 17 gm HSPRN PRN ORAL Constipation 06/12/20 00:30 07/12/20 00:29 06/12/20 18:09 Sertraline HCl (Zoloft) 50 mg DAILY ORAL 06/12/20 09:00 07/12/20 08:59 06/14/20 09:25 Sucralfate (Carafate) 1 gm AC+HS ORAL 06/12/20 06:30 09/10/20 06:29 06/14/20 12:17 Temazepam (Restoril) 15 mg HSPRN PRN ORAL Insomnia 06/12/20 00:30 06/19/20 00:29 Laboratory Tests 06/14/20 06:14: White Blood Count 5.6, Red Blood Count 3.60L, Hemoglobin 10.3L, Hematocrit 31.0L , Mean Corpuscular Volume 86, Mean Corpuscular Hemoglobin 28.7, Mean Corpuscular Hemoglobin Concent 33.3, Red Cell Distribution Width 15.6H, Platelet Count 139L, Mean Platelet Volume 8.9, Neutrophils (%) (Auto) 74.2, Lymphocytes (%) (Auto) 14.2L, Monocytes (%) (Auto) 7.7, Eosinophils (%) (Auto) 3.0, Basophils (%) (Auto) 0.9, Prothrombin Time 12.3H, Prothromb Time International Ratio 1.1, Activated Partial Thromboplast Time 27, Sodium Level 143, Potassium Level 3.8, Chloride Level 107, Carbon Dioxide Level 30, Anion Gap 6, Blood Urea Nitrogen 60H, Creatinine 1.8H, Estimat Glomerular Filtration Rate 27.2, Glucose Level 196H, Calcium Level 8.7, Phosphorus Level 3.0, Magnesium Level 2.1, Total Bilirubin 0.2, Aspartate Amino Transf (AST/SGOT) 13L, Alanine Aminotransferase (ALT/SGPT) 13, Alkaline Phosphatase 78, Total Protein 6.4, Albumin 3.2L, Globulin 3.2, Albumin/Globulin Ratio 1.0 06/14/20 12:12: POC Whole Blood Glucose 252H Height (Feet): 5 Height (Inches): 0.00 Weight (Pounds): 199 General Appearance: no apparent distress Cardiovascular: normal rate Respiratory/Chest: decreased breath sounds Abdomen: distended Caleb Agudelo MD Jun 14, 2020 14:26
--- NOTE | 2020-06-14 14:54 | NUR ---
NURSE NOTES: OB stool collected and sent to lab.
[2020-06-14 16:00] VITALS: BP 140/92
--- NOTE | 2020-06-14 16:19 | History & Physical ---
History and Physical History & Physicial Dictated for Int Med-Dr Guardado no. [id number]. Ricco Beckwith MD Jun 14, 2020 16:19
--- NOTE | 2020-06-14 17:16 | Cardiac Electrophysiology PN ---
Subjective Subjective [id number] Objective Last 24 Hour Vital Signs Date Time Temp Pulse Resp B/P (MAP) Pulse Ox O2 Delivery O2 Flow Rate FiO2 06/14/20 16:00 97.6 70 20 140/92 (108) 96 06/14/20 14:00 147/54 06/14/20 12:00 61 06/14/20 12:00 97.7 66 20 147/54 (85) 96 06/14/20 09:26 69 121/48 06/14/20 09:00 Room Air 06/14/20 08:00 97.9 69 20 121/48 (72) 95 06/14/20 08:00 78 06/14/20 06:00 138/68 06/14/20 04:00 97.5 74 20 138/68 (91) 96 06/14/20 04:00 66 06/14/20 00:00 69 06/14/20 00:00 97.4 80 20 149/67 (94) 96 06/13/20 21:12 149/63 06/13/20 21:12 74 149/63 06/13/20 21:00 Room Air 06/13/20 20:00 97.3 74 20 149/63 (91) 94 06/13/20 20:00 61 Intake and Output 06/13/20 06/14/20 19:00 07:00 Intake Total 1086.2 ml 990 ml Balance 1086.2 ml 990 ml Intake Oral 140 ml 240 ml IV Total 946.2 ml 750 ml # Voids 6 7 Laboratory Tests Test 06/14/20 06:14 06/14/20 12:12 06/14/20 16:27 White Blood Count 5.6 K/UL (4.8-10.8) Red Blood Count 3.60 M/UL (4.20-5.40) L Hemoglobin 10.3 G/DL (12.0-16.0) L Hematocrit 31.0 % (37.0-47.0) L Mean Corpuscular Volume 86 FL (80-99) Mean Corpuscular Hemoglobin 28.7 PG (27.0-31.0) Mean Corpuscular Hemoglobin Concent 33.3 G/DL (32.0-36.0) Red Cell Distribution Width 15.6 % (11.6-14.8) H Platelet Count 139 K/UL (150-450) L Mean Platelet Volume 8.9 FL (6.5-10.1) Neutrophils (%) (Auto) 74.2 % (45.0-75.0) Lymphocytes (%) (Auto) 14.2 % (20.0-45.0) L Monocytes (%) (Auto) 7.7 % (1.0-10.0) Eosinophils (%) (Auto) 3.0 % (0.0-3.0) Basophils (%) (Auto) 0.9 % (0.0-2.0) Prothrombin Time 12.3 SEC (9.30-11.50) H Prothromb Time International Ratio 1.1 (0.9-1.1) Activated Partial Thromboplast Time 27 SEC (23-33) Sodium Level 143 MMOL/L (136-145) Potassium Level 3.8 MMOL/L (3.5-5.1) Chloride Level 107 MMOL/L (98-107) Carbon Dioxide Level 30 MMOL/L (21-32) Anion Gap 6 mmol/L (5-15) Blood Urea Nitrogen 60 mg/dL (7-18) H Creatinine 1.8 MG/DL (0.55-1.30) H Estimat Glomerular Filtration Rate 27.2 mL/min (>60) Glucose Level 196 MG/DL (74-106) H Calcium Level 8.7 MG/DL (8.5-10.1) Phosphorus Level 3.0 MG/DL (2.5-4.9) Magnesium Level 2.1 MG/DL (1.8-2.4) Total Bilirubin 0.2 MG/DL (0.2-1.0) Aspartate Amino Transf (AST/SGOT) 13 U/L (15-37) L Alanine Aminotransferase (ALT/SGPT) 13 U/L (12-78) Alkaline Phosphatase 78 U/L (46-116) Total Protein 6.4 G/DL (6.4-8.2) Albumin 3.2 G/DL (3.4-5.0) L Globulin 3.2 g/dL Albumin/Globulin Ratio 1.0 (1.0-2.7) POC Whole Blood Glucose 252 MG/DL (74-106) H 243 MG/DL (74-106) H Microbiology Date/Time Source Procedure Growth Status 06/12/20 15:30 Nasopharynx SARS-CoV-2 RdRp Gene Assay - Final Complete 06/11/20 22:19 Urine,Clean Catch Urine Culture - Preliminary Gram Negative Alan Resulted Iggy Leon MD Jun 14, 2020 17:16
--- NOTE | 2020-06-14 18:00 | History and Physical Report ---
DATE OF ADMISSION: 06/11/2020 CHIEF COMPLAINT: The patient is a 79-year-old female who presents with a chief complaint of black stools. HISTORY OF PRESENT ILLNESS: The patient has a history of gastrointestinal hemorrhage in the past. The patient had a gastrointestinal hemorrhage in December 2019 and again in February 2020. Endoscopy revealed a gastric ulcer, which was clipped, and gastric polyp, which was benign. The patient presented to [facility] complaining of black stools for 3 days. Initial hemoglobin and hematocrit were 10.9 and 33.4 respectively. The patient was admitted with gastrointestinal hemorrhage. REVIEW OF SYSTEMS: CONSTITUTIONAL: The patient denies weight loss or weight gain. The patient denies fevers or chills. HEENT: The patient denies ear or throat pain. The patient denies headache. CARDIOVASCULAR: The patient denies palpitations or chest pain. CHEST: The patient denies wheeze or shortness of breath. ABDOMINAL: The patient denies nausea, vomiting, diarrhea, or constipation. GENITOURINARY: The patient denies dysuria or increased frequency of urination. NEUROMUSCULAR: The patient denies seizures or generalized weakness. PAST MEDICAL HISTORY: Significant for: 1. Gastrointestinal hemorrhage as above. 2. History of gastric ulcer. 3. History of gastric polyp. 4. Diabetes type 2. 5. Hypertension. 6. Atrial fibrillation. 7. Hypercholesterolemia. PAST SURGICAL HISTORY: 1. Significant for section in the distant past. 2. Colonoscopy in December 2019 and again in February 2020. CURRENT MEDICATIONS: 1. Atorvastatin 40 mg p.o. at bedtime. 2. Carvedilol 25 mg p.o. twice daily. 3. Iron sulfate 325 mg p.o. daily. 4. Vitamin D3, 25 mcg p.o. daily. 5. Hydralazine 50 mg p.o. 3 times daily. 6. Lantus insulin 30 units subcutaneously at bedtime. 7. Levothyroxine 75 mcg p.o. daily. 8. Metformin 1000 mg p.o. twice daily. 9. Metolazone 5 mg p.o. daily. 10. Myrbetriq 25 mg p.o. daily. 11. Pantoprazole 40 mg p.o. daily. 12. Potassium chloride 10 mEq p.o. daily. 13. Zoloft 50 mg p.o. daily. 14. Carafate 1 g p.o. 4 times a day. 15. Valsartan/hydrochlorothiazide 320/25 mg 1 tab p.o. daily. ALLERGIES: No known drug allergies. SOCIAL HISTORY: The patient is and lives with her . The patient denies tobacco or alcohol use. PHYSICAL EXAMINATION: VITAL SIGNS: Temperature 97.3, respirations 18, pulse 73, blood pressure 135/73. GENERAL: The patient is a well-developed, well-nourished obese female, in no apparent distress. HEENT: Eyes, pupils are equal, responsive to light and accommodation. Extraocular movements are intact. NECK: Supple without lymphadenopathy. CHEST: Lungs are clear to auscultation bilaterally without wheezes or rales. CARDIOVASCULAR: Regular rate. S1, S2 are normal without murmurs, rubs, or gallops. ABDOMEN: Soft, nontender, and nondistended. Positive bowel sounds. No evidence of hepatosplenomegaly. Currently, no rebound or guarding noted. EXTREMITIES: Negative for clubbing, cyanosis, or edema. RECTAL/GENITALIA: Not performed. NEUROLOGIC: Cranial nerves II through XII are grossly intact without focal deficits. Motor strength is 5/5 bilaterally. Deep tendon reflexes are 2+, plantar. LABORATORY STUDIES: WBC 8.1, hemoglobin 10.9, hematocrit 33.4, platelets 160,000. Sodium 139, potassium 3.4, chloride 101, CO2 29, BUN 84, creatinine 1.9, glucose 149. ASSESSMENT: This is a 79-year-old female with: 1. Melena. 2. History of gastrointestinal hemorrhage. 3. History of gastric ulcer. 4. History of gastric polyp. 5. Diabetes type 2. 6. Hypertension. 7. Atrial fibrillation. 8. Hypercholesterolemia. 9. Acute renal failure. TREATMENT: 1. Gastrointestinal hemorrhage. A gastroenterology consultation has been obtained with Dr. Poppy Pabon. The patient may require endoscopy and colonoscopy during this hospitalization. The patient has been started on intravenous Protonix. Follow recommendations of Gastroenterology. 2. Diabetes type 2. A NovoLog sliding scale has been instituted. 3. Hypertension. Continue Coreg and valsartan/hydrochlorothiazide as above. 4. Atrial fibrillation. A cardiology consultation has been obtained with Dr. Hahn. Continue carvedilol as above. 5. Hypercholesterolemia. Continue atorvastatin as above. 6. Renal failure. A nephrology consultation has been obtained with Dr. Agudelo. Ricco Beckwith M.D. DR: BONNIE JOB#: [id number] CC:
--- NOTE | 2020-06-14 18:45 | Consultation ---
DATE OF CONSULTATION: 06/14/2020 CARDIOLOGY CONSULTATION CONSULTING PHYSICIAN: Iggy Leon MD REFERRING PHYSICIAN: Reilly Guardado MD REASON FOR CONSULTATION: Management of atrial fibrillation. HISTORY OF PRESENT ILLNESS: Patient is a very pleasant 79-year-old lady with history of hypertension, diabetes, and chronic atrial fibrillation who presented to the emergency room with GI bleeding. Patient was admitted to [facility] with GI bleed and underwent endoscopy in December, was done at that time. Patient was on anticoagulation for atrial fibrillation, which worsened the bleeding. Patient had a second endoscopy in February and that had shown Endoclips in the midbody of the stomach. Patient subsequently evaluated by GI and underwent endoscopy yesterday. The biopsy results are pending. She had 2 antral polyps and gastritis. Cardiology consultation was obtained for further evaluation. REVIEW OF SYSTEMS: Negative other than what was mentioned in the history of present illness. PAST MEDICAL HISTORY: As mentioned above. FAMILY HISTORY: Noncontributory. SOCIAL HISTORY: She lives at home. Does not smoke or drink alcohol. PHYSICAL EXAMINATION: VITAL SIGNS: Show blood pressure of 130/70, pulse is 70, respirations 18, temperature 97.5. HEAD AND NECK: Shows no JVD. LUNGS: Clear. CARDIOVASCULAR: Shows regular S1 and S2 with no gallop or murmur. ABDOMEN: Soft. EXTREMITIES: No pitting edema. LABORATORY AND DIAGNOSTIC DATA: Her labs show white count of 5.6, hemoglobin 10.2, hematocrit of 31, and platelet count is 139. Sodium is 142, potassium 3.8, BUN of 16, creatinine 1.8, and glucose of 196. BNP 6517. ASSESSMENT AND PLAN: 1. Atrial fibrillation. The rate is controlled based on the EKG. The heart rate is in the 60s. 2. Complete right bundle-branch block myocardial infarction. Echocardiogram showed ejection fraction of 65%. Continue Coreg 25 mg b.i.d. 3. Hypertension, on Coreg 25 b.i.d. as well as hydralazine 50 mg 3 times daily. 4. GI bleed, status post EGD. Awaiting results of biopsy. Followed by Dr. Kruger. 5. Acute on chronic renal failure with creatinine of 1.8. Patient is on IV fluids. Further evaluation by Dr. Agudelo. No evidence of hydronephrosis. Thank you very much for allowing me to participate in the care of this patient. Please do not hesitate to contact me for any questions regarding my evaluation. Iggy Leon M.D. DR: GEORGES JOB#: [id number] CC:
--- NOTE | 2020-06-14 19:08 | NUR ---
NURSE HAND-OFF REPORT: Important Events on Shift:[OB stool collected] Patient Status: [stable, full code] Diet: [cardiac] Pending Orders: [] Pending Results/Labs:[] Pending MD notification:[] Latest Vital Signs: Temperature 97.6 , Pulse 69 , B/P 140 /92 , Respiratory Rate 20 , O2 SAT 96 , Room Air, O2 Flow Rate 3 . Vital Sign Comment: [] EKG Rhythm: Atrial Fibrillation Rhythm change?: N MD Notified?: - MD Response: Latest Lopez Fall Score: 70 Fall Risk: High Risk Safety Measures: Call light Within Reach, Bed Alarm Zone 1, Side Rails Side Rails x2, Bed position Low and Locked. Fall Precautions: Yellow Socks Yellow Gown Door Sign Patient Fall Education Report given to [Topher CHINO].
[2020-06-14 20:00] VITALS: BP 161/80
--- NOTE | 2020-06-14 20:00 | NUR ---
NURSE NOTES: RECEIVED PATIENT FROM FARHAN CHINO. A/OX4 IN BED. PATIENT IS AWAKE AT THIS TIME. GUAMANIAN SPEAKING ONLY; ABLE TO MAKE NEED KNOWN. NO PAIN NOTED AT THIS TIME. NO DISCOMFORT NOTED. IV LEFT FA 24g RUNNING D5NS @50ML/HR; FLUSHED PATENT; NO ERYTHEMA OR BLEEDING NOTED. BED IN THE LOWEST POSITION. SIDERAILS ARE UP X2, CALL LIGHT IS WITHIN REACH. WILL CONT TO MONITOR.
[2020-06-15] VITALS: BP 123/49
[2020-06-15 04:00] VITALS: BP 161/77
--- NOTE | 2020-06-15 04:00 | NUR ---
NURSE NOTES: Patients 12 lead EKG was completed and placed in Chart.
[2020-06-15] MEDS: HydrALAZINE 50mg tab ORAL SCH ×3 (06:10→22:59)
[2020-06-15] MEDS: NovoLOG Insulin Flexpen SUBQ SCH ×4 (06:12→21:29)
[2020-06-15] MEDS: Sucralfate 1gm tab ORAL SCH ×4 (06:13→20:53)
[2020-06-15 07:47] LABS: BASOPHILS % (AUTO) 0.8 % (0.0-2.0); HEMOGLOBIN 10.9 G/DL (12.0-16.0); MEAN CORPUSCULAR VOLUME 89 FL (80-99); MONOCYTES % (AUTO) 5.8 % (1.0-10.0); NEUTROPHILS % (AUTO) 78.4 % (45.0-75.0); PLATELET COUNT 130 K/UL (150-450); RED BLOOD COUNT 3.83 M/UL (4.20-5.40); RED CELL DISTRIBUTION WIDTH 15.7 % (11.6-14.8); WHITE BLOOD COUNT 6.9 K/UL (4.8-10.8)
[2020-06-15 08:00] VITALS: BP 155/66
--- NOTE | 2020-06-15 08:25 | General Progress Note ---
Subjective ROS Limited/Unobtainable: No Allergies: Coded Allergies: No Known Allergies (Unverified , 04/10/20) Objective Last 24 Hour Vital Signs Date Time Temp Pulse Resp B/P (MAP) Pulse Ox O2 Delivery O2 Flow Rate FiO2 06/15/20 06:10 166/77 06/15/20 04:00 65 06/15/20 04:00 97.7 66 20 161/77 (105) 94 06/15/20 00:00 70 06/15/20 00:00 97.9 69 20 123/49 (73) 94 06/14/20 22:43 134/59 06/14/20 21:00 Room Air 06/14/20 20:53 70 161/80 06/14/20 20:00 67 06/14/20 20:00 98.3 70 20 161/80 (107) 95 06/14/20 16:00 97.6 70 20 140/92 (108) 96 06/14/20 16:00 69 06/14/20 14:00 147/54 06/14/20 12:00 61 06/14/20 12:00 97.7 66 20 147/54 (85) 96 06/14/20 09:26 69 121/48 06/14/20 09:00 Room Air Intake and Output 06/14/20 06/15/20 19:00 07:00 Intake Total 550 ml 680 ml Balance 550 ml 680 ml Intake Oral 500 ml 80 ml IV Total 50 ml 600 ml # Voids 5 6 Laboratory Tests 06/14/20 12:12: POC Whole Blood Glucose 252H 06/14/20 12:45: Stool Occult Blood Negative 06/14/20 16:27: POC Whole Blood Glucose 243H 06/14/20 20:30: POC Whole Blood Glucose 116H 06/15/20 07:00: White Blood Count 6.9, Red Blood Count 3.83L, Hemoglobin 10.9L, Hematocrit 34.0L , Mean Corpuscular Volume 89, Mean Corpuscular Hemoglobin 28.5, Mean Corpuscular Hemoglobin Concent 32.2, Red Cell Distribution Width 15.7H, Platelet Count 130L, Mean Platelet Volume 8.9, Neutrophils (%) (Auto) 78.4H, Lymphocytes (%) (Auto) 12.0L, Monocytes (%) (Auto) 5.8, Eosinophils (%) (Auto) 3.0, Basophils (%) (Auto) 0.8, Sodium Level [Pending], Potassium Level [Pending], Chloride Level [Pending], Carbon Dioxide Level [Pending], Blood Urea Nitrogen [Pending], Creatinine [Pending], Estimat Glomerular Filtration Rate [Pending], Glucose Level [Pending], Calcium Level [Pending], Pro-B-Type Natriuretic Peptide [Pending] Height (Feet): 5 Height (Inches): 0.00 Weight (Pounds): 199 General Appearance: no apparent distress EENT: normal ENT inspection Neck: supple Cardiovascular: normal rate Respiratory/Chest: decreased breath sounds Abdomen: normal bowel sounds, non tender, soft Extremities: non-tender Assessment/Plan Problem List: (1) Anemia ICD Codes: D64.9 - Anemia, unspecified SNOMED: 402539630 (2) DMII (diabetes mellitus, type 2) ICD Codes: E11.9 - Type 2 diabetes mellitus without complications SNOMED: 03363658 (3) HTN (hypertension) ICD Codes: I10 - Essential (primary) hypertension SNOMED: 59996354 (4) Gastrointestinal bleeding ICD Codes: K92.2 - Gastrointestinal hemorrhage, unspecified SNOMED: 18627711 (5) Chronic atrial fibrillation ICD Codes: I48.20 - Chronic atrial fibrillation, unspecified SNOMED: 678427186 Assessment/Plan: s/p enteroscopy fu biopsy results cbc in am>>>stable repeat stool ob>>>> NEG ok for dc GI stand point with close out patient fu Wang Kruger MD Jun 15, 2020 08:25
[2020-06-15 08:34] LABS: CALCIUM 8.9 MG/DL (8.5-10.1); CREATININE 1.6 MG/DL (0.55-1.30); POTASSIUM 3.6 MMOL/L (3.5-5.1)
[2020-06-15] MEDS: Pantoprazole Inj IVP SCH ×2 (09:15→20:53)
[2020-06-15] MEDS: Carvedilol 25mg Tab ORAL SCH ×2 (09:16→20:53)
[2020-06-15] MEDS: cefTRIAXone 1 GM in D5W 55 ML IVPB SCH (09:16)
[2020-06-15] MEDS: Sertraline 50mg tab ORAL SCH (09:17)
[2020-06-15] MEDS ORDERED: D5NS 1000ml IV ONE (09:24)
--- NOTE | 2020-06-15 10:42 | Pulmonology Progress Note ---
Subjective ROS Limited/Unobtainable: No Constitutional: Reports: no symptoms HEENT: Repors: no symptoms Allergies: Coded Allergies: No Known Allergies (Unverified , 04/10/20) Subjective remains afebrile, no leukocytosis pulse ox stable on RA UCX + Klebsiella ESBL no CP, no SOB denies abd pain, n/v/ creat trending down Objective Last 24 Hour Vital Signs Date Time Temp Pulse Resp B/P (MAP) Pulse Ox O2 Delivery O2 Flow Rate FiO2 06/15/20 09:16 73 155/66 06/15/20 08:00 97.7 73 20 155/66 (95) 96 06/15/20 06:10 166/77 06/15/20 04:00 65 06/15/20 04:00 97.7 66 20 161/77 (105) 94 06/15/20 00:00 70 06/15/20 00:00 97.9 69 20 123/49 (73) 94 06/14/20 22:43 134/59 06/14/20 21:00 Room Air 06/14/20 20:53 70 161/80 06/14/20 20:00 67 06/14/20 20:00 98.3 70 20 161/80 (107) 95 06/14/20 16:00 97.6 70 20 140/92 (108) 96 06/14/20 16:00 69 06/14/20 14:00 147/54 06/14/20 12:00 61 06/14/20 12:00 97.7 66 20 147/54 (85) 96 Intake and Output 06/14/20 06/15/20 19:00 07:00 Intake Total 550 ml 680 ml Balance 550 ml 680 ml Intake Oral 500 ml 80 ml IV Total 50 ml 600 ml # Voids 5 6 General Appearance: WD/WN HEENT: normocephalic, anicteric, EOMI, supple Respiratory: chest wall non-tender, lungs clear Cardiovascular: normal peripheral pulses, normal rate, regular rhythm Abdomen: normal bowel sounds, soft, non tender Genitourinary: normal external genitalia Extremities: no cyanosis, no edema, pedal pulses normal Skin: no rash Neurologic: alert, oriented x 3, responsive Musculoskeletal: normal muscle bulk Microbiology Date/Time Source Procedure Growth Status 06/12/20 15:30 Nasopharynx SARS-CoV-2 RdRp Gene Assay - Final Complete Laboratory Tests 06/14/20 12:12: POC Whole Blood Glucose 252H 06/14/20 12:45: Stool Occult Blood Negative 06/14/20 16:27: POC Whole Blood Glucose 243H 06/14/20 20:30: POC Whole Blood Glucose 116H 06/15/20 07:00: White Blood Count 6.9, Red Blood Count 3.83L, Hemoglobin 10.9L, Hematocrit 34.0L , Mean Corpuscular Volume 89, Mean Corpuscular Hemoglobin 28.5, Mean Corpuscular Hemoglobin Concent 32.2, Red Cell Distribution Width 15.7H, Platelet Count 130L, Mean Platelet Volume 8.9, Neutrophils (%) (Auto) 78.4H, Lymphocytes (%) (Auto) 12.0L, Monocytes (%) (Auto) 5.8, Eosinophils (%) (Auto) 3.0, Basophils (%) (Auto) 0.8, Sodium Level 147H, Potassium Level 3.6, Chloride Level 112H, Carbon Dioxide Level 26, Anion Gap 9, Blood Urea Nitrogen 47H, Creatinine 1.6H, Estimat Glomerular Filtration Rate 31.1, Glucose Level 191H, Calcium Level 8.9, Pro-B-Type Natriuretic Peptide [id number] Current Medications Medications (Trade) Dose Ordered Sig/Fidel Route PRN Reason Start Time Stop Time Status Last Admin Dose Admin Acetaminophen (Tylenol) 650 mg Q4H PRN ORAL fever 06/12/20 00:30 07/12/20 00:29 Carvedilol (Coreg) 25 mg EVERY 12 HOURS ORAL 06/12/20 09:00 07/12/20 08:59 06/15/20 09:16 Ceftriaxone Sodium 1 gm/ Dextrose 55 ml @ 110 mls/hr Q24H IVPB 06/14/20 09:00 06/21/20 08:59 06/15/20 09:16 Dextrose (Dextrose 50%) 25 ml Q30M PRN IV Hypoglycemia 06/12/20 00:30 09/10/20 00:29 Dextrose (Dextrose 50%) 50 ml Q30M PRN IV Hypoglycemia 06/12/20 00:30 09/10/20 00:29 Dextrose/Sodium Chloride 1,000 ml @ 50 mls/hr Q20H IV 06/12/20 10:30 07/12/20 10:29 06/14/20 16:43 Diphenhydramine HCl (Benadryl) 25 mg Q6H PRN ORAL Itching/Pruritis 06/12/20 00:30 07/12/20 00:29 Docusate Sodium (Colace) 100 mg BIDPRN PRN ORAL Constipation 06/12/20 10:30 07/12/20 10:29 Gabapentin (Neurontin) 100 mg BID ORAL 06/12/20 09:00 07/12/20 08:59 06/15/20 09:16 Hydralazine HCl (Apresoline) 50 mg EVERY 8 HOURS ORAL 06/12/20 06:00 09/10/20 05:59 06/15/20 06:10 Insulin Aspart (NovoLOG) BEFORE MEALS AND HS SUBQ 06/12/20 06:30 09/10/20 06:29 06/15/20 06:12 Levothyroxine Sodium (Synthroid) 75 mcg DAILY@0630 ORAL 06/12/20 06:30 07/12/20 06:29 06/15/20 06:10 Nitroglycerin (Ntg) 0.4 mg Q5M X 3 DOSES PRN SL Prn Chest Pain 06/12/20 00:30 07/12/20 00:29 Ondansetron HCl (Zofran) 4 mg Q6H PRN IVP Nausea & Vomiting 06/12/20 00:30 07/12/20 00:29 Pantoprazole (Protonix) 40 mg EVERY 12 HOURS IVP 06/12/20 10:45 07/12/20 10:44 06/15/20 09:15 Polyethylene Glycol (Miralax) 17 gm HSPRN PRN ORAL Constipation 06/12/20 00:30 07/12/20 00:29 06/12/20 18:09 Sertraline HCl (Zoloft) 50 mg DAILY ORAL 06/12/20 09:00 07/12/20 08:59 06/15/20 09:17 Sucralfate (Carafate) 1 gm AC+HS ORAL 06/12/20 06:30 09/10/20 06:29 06/14/20 16:44 Temazepam (Restoril) 15 mg HSPRN PRN ORAL Insomnia 06/12/20 00:30 12/10/20 00:29 Assessment/Plan Assessment/Plan ASSESSMENT GI bleeding s/p endoscopy Acute dehydration UTI with GNR Acute on chronic renal failure Anemia DM HTN Hypothyroidism PLAN OF CARE tele s/p endoscopy 06/13 with finding of 2 antral polyps , s/p biopsy; gastritis , s/p biopsy, also biopsy of duodenum to rule out celiac disease f/up with the biopsy results PPI and Carafate monitor H&H with goal to keep Hgb >7, anemia work-up c/w anemia of chronic disease H&H remains at the baseline consider iron- per GI recs IV fluids diet as tolerated Echo with pEF 65% no evidence of WMA tele-> A. fib with BBB , rate controlled ; hold a/c due to GI bleeding and consider restarting after GI clears consider cardio eval for further recs re a/c BP management with current regimen and optimize further as needed BS management with SSI HgbA1c 6.3 diabetic diet and diabetic teaching monitor renal parameters lytes ; correct as needed ; avoid nephrotoxic creat trending down renal ultrasound with small right kidney; no evidence of hydronephrosis UCX -> Klebsiella ESBL , dc ceftriaxone and start Zosyn consider ID consult - per primary discretion f continue Synthroid , TSH within normal limits supportive care case discussed and evaluated by supervising physician Shaista Falk NP Jun 15, 2020 10:41
--- NOTE | 2020-06-15 11:37 | Nephrology Progress Note ---
Assessment/Plan Problem List: (1) Renal failure (ARF), acute on chronic (2) Anemia (3) Acute dehydration (4) Gastrointestinal bleeding (5) Diabetes mellitus (6) Chronic atrial fibrillation (7) Hypothyroidism Assessment Acute renal failure, superimposed on CKD Dehydration Anemia, GI bleed History of atrial fibrillation UTI Diabetes mellitus Hypothyroidism Plan June 15: Labs reviewed. Serum creatinine lower at 1.6. Remains stable from renal standpoint of view. Continue per GI and consultants. June 14: Labs reviewed. Serum creatinine 1.8. Remains stable from renal standpoint of view. Continue per consultants. Lower IV fluid to 50 cc an hour June 13: Labs reviewed. Medication list reviewed. Serum creatinine 1.9 stable. Continue per consultants. PETTY Findings: Right kidney measures 7.9 cm in length. Left kidney measures 9.1 cm in length. Both kidneys demonstrate normal echogenicity with lobulated contours. No hydronephrosis. There is a small cyst in the right kidney. Partially obscured inferior vena cava. Bladder is normal. There is incidental finding of a gallstone within the gallbladder Impression: Small right kidney Negative for hydronephrosis Small right renal cyst is incidentally noted. Cholelithiasis. June 12: Slow hydrate Monitor renal parameters Monitor hemoglobin hematocrit Antibiotics 2D echocardiogram Kidney ultrasound Check TSH, lipid panel, anemia work-up, hemoglobin A1c Per consultants Per orders Subjective ROS Limited/Unobtainable: No Constitutional: Reports: malaise, weakness Objective Objective Last 24 Hour Vital Signs Date Time Temp Pulse Resp B/P (MAP) Pulse Ox O2 Delivery O2 Flow Rate FiO2 06/15/20 09:16 73 155/66 06/15/20 08:00 78 06/15/20 08:00 97.7 73 20 155/66 (95) 96 06/15/20 06:10 166/77 06/15/20 04:00 65 06/15/20 04:00 97.7 66 20 161/77 (105) 94 06/15/20 00:00 70 06/15/20 00:00 97.9 69 20 123/49 (73) 94 06/14/20 22:43 134/59 06/14/20 21:00 Room Air 06/14/20 20:53 70 161/80 06/14/20 20:00 67 06/14/20 20:00 98.3 70 20 161/80 (107) 95 06/14/20 16:00 97.6 70 20 140/92 (108) 96 06/14/20 16:00 69 06/14/20 14:00 147/54 06/14/20 12:00 61 06/14/20 12:00 97.7 66 20 147/54 (85) 96 Intake and Output 06/14/20 06/15/20 19:00 07:00 Intake Total 550 ml 680 ml Balance 550 ml 680 ml Intake Oral 500 ml 80 ml IV Total 50 ml 600 ml # Voids 5 6 Current Medications Medications (Trade) Dose Ordered Sig/Fidel Route PRN Reason Start Time Stop Time Status Last Admin Dose Admin Acetaminophen (Tylenol) 650 mg Q4H PRN ORAL fever 06/12/20 00:30 07/12/20 00:29 Carvedilol (Coreg) 25 mg EVERY 12 HOURS ORAL 06/12/20 09:00 07/12/20 08:59 06/15/20 09:16 Dextrose (Dextrose 50%) 25 ml Q30M PRN IV Hypoglycemia 06/12/20 00:30 09/10/20 00:29 Dextrose (Dextrose 50%) 50 ml Q30M PRN IV Hypoglycemia 06/12/20 00:30 09/10/20 00:29 Dextrose/Sodium Chloride 1,000 ml @ 50 mls/hr Q20H IV 06/12/20 10:30 07/12/20 10:29 06/14/20 16:43 Diphenhydramine HCl (Benadryl) 25 mg Q6H PRN ORAL Itching/Pruritis 06/12/20 00:30 07/12/20 00:29 Docusate Sodium (Colace) 100 mg BIDPRN PRN ORAL Constipation 06/12/20 10:30 07/12/20 10:29 Gabapentin (Neurontin) 100 mg BID ORAL 06/12/20 09:00 07/12/20 08:59 06/15/20 09:16 Hydralazine HCl (Apresoline) 50 mg EVERY 8 HOURS ORAL 06/12/20 06:00 09/10/20 05:59 06/15/20 06:10 Insulin Aspart (NovoLOG) BEFORE MEALS AND HS SUBQ 06/12/20 06:30 09/10/20 06:29 06/15/20 06:12 Levothyroxine Sodium (Synthroid) 75 mcg DAILY@0630 ORAL 06/12/20 06:30 07/12/20 06:29 06/15/20 06:10 Nitroglycerin (Ntg) 0.4 mg Q5M X 3 DOSES PRN SL Prn Chest Pain 06/12/20 00:30 07/12/20 00:29 Ondansetron HCl (Zofran) 4 mg Q6H PRN IVP Nausea & Vomiting 06/12/20 00:30 07/12/20 00:29 Pantoprazole (Protonix) 40 mg EVERY 12 HOURS IVP 06/12/20 10:45 07/12/20 10:44 06/15/20 09:15 Piperacillin Sod/ Tazobactam Sod 3.375 gm/Sodium Chloride 110 ml @ 27.5 mls/hr Q12H IVPB 06/15/20 12:00 06/22/20 11:59 Polyethylene Glycol (Miralax) 17 gm HSPRN PRN ORAL Constipation 06/12/20 00:30 07/12/20 00:29 06/12/20 18:09 Sertraline HCl (Zoloft) 50 mg DAILY ORAL 06/12/20 09:00 07/12/20 08:59 06/15/20 09:17 Sucralfate (Carafate) 1 gm AC+HS ORAL 06/12/20 06:30 09/10/20 06:29 06/14/20 16:44 Temazepam (Restoril) 15 mg HSPRN PRN ORAL Insomnia 06/12/20 00:30 06/19/20 00:29 Laboratory Tests 06/14/20 12:12: POC Whole Blood Glucose 252H 06/14/20 12:45: Stool Occult Blood Negative 06/14/20 16:27: POC Whole Blood Glucose 243H 06/14/20 20:30: POC Whole Blood Glucose 116H 06/15/20 07:00: White Blood Count 6.9, Red Blood Count 3.83L, Hemoglobin 10.9L, Hematocrit 34.0L , Mean Corpuscular Volume 89, Mean Corpuscular Hemoglobin 28.5, Mean Corpuscular Hemoglobin Concent 32.2, Red Cell Distribution Width 15.7H, Platelet Count 130L, Mean Platelet Volume 8.9, Neutrophils (%) (Auto) 78.4H, Lymphocytes (%) (Auto) 12.0L, Monocytes (%) (Auto) 5.8, Eosinophils (%) (Auto) 3.0, Basophils (%) (Auto) 0.8, Sodium Level 147H, Potassium Level 3.6, Chloride Level 112H, Carbon Dioxide Level 26, Anion Gap 9, Blood Urea Nitrogen 47H, Creatinine 1.6H, Estimat Glomerular Filtration Rate 31.1, Glucose Level 191H, Calcium Level 8.9, Pro-B-Type Natriuretic Peptide 82188H Height (Feet): 5 Height (Inches): 0.00 Weight (Pounds): 199 General Appearance: no apparent distress Cardiovascular: normal rate Respiratory/Chest: decreased breath sounds Abdomen: soft Caleb Agudelo MD Jun 15, 2020 11:37
[2020-06-15 12:00] VITALS: BP 153/50
[2020-06-15] MEDS: Zosyn 3.375gm in NS 110ml IVPB SCH (12:27)
--- NOTE | 2020-06-15 13:58 | Internal Med Progress Note ---
Subjective Date of Service: Jun 15, 2020 Physician Name AmenaRicco Attending Physician Reilly Guardado MD Current Medications Medications (Trade) Dose Ordered Sig/Fidel Route PRN Reason Start Time Stop Time Status Last Admin Dose Admin Acetaminophen (Tylenol) 650 mg Q4H PRN ORAL fever 06/12/20 00:30 07/12/20 00:29 Carvedilol (Coreg) 25 mg EVERY 12 HOURS ORAL 06/12/20 09:00 07/12/20 08:59 06/15/20 09:16 Dextrose (Dextrose 50%) 25 ml Q30M PRN IV Hypoglycemia 06/12/20 00:30 09/10/20 00:29 Dextrose (Dextrose 50%) 50 ml Q30M PRN IV Hypoglycemia 06/12/20 00:30 09/10/20 00:29 Dextrose/Sodium Chloride 1,000 ml @ 50 mls/hr Q20H IV 06/12/20 10:30 07/12/20 10:29 06/14/20 16:43 Diphenhydramine HCl (Benadryl) 25 mg Q6H PRN ORAL Itching/Pruritis 06/12/20 00:30 07/12/20 00:29 Docusate Sodium (Colace) 100 mg BIDPRN PRN ORAL Constipation 06/12/20 10:30 07/12/20 10:29 Gabapentin (Neurontin) 100 mg BID ORAL 06/12/20 09:00 07/12/20 08:59 06/15/20 09:16 Hydralazine HCl (Apresoline) 50 mg EVERY 8 HOURS ORAL 06/12/20 06:00 09/10/20 05:59 06/15/20 06:10 Insulin Aspart (NovoLOG) BEFORE MEALS AND HS SUBQ 06/12/20 06:30 09/10/20 06:29 06/15/20 12:24 Levothyroxine Sodium (Synthroid) 75 mcg DAILY@0630 ORAL 06/12/20 06:30 07/12/20 06:29 06/15/20 06:10 Nitroglycerin (Ntg) 0.4 mg Q5M X 3 DOSES PRN SL Prn Chest Pain 06/12/20 00:30 07/12/20 00:29 Ondansetron HCl (Zofran) 4 mg Q6H PRN IVP Nausea & Vomiting 06/12/20 00:30 07/12/20 00:29 Pantoprazole (Protonix) 40 mg EVERY 12 HOURS IVP 06/12/20 10:45 07/12/20 10:44 06/15/20 09:15 Piperacillin Sod/ Tazobactam Sod 3.375 gm/Sodium Chloride 110 ml @ 27.5 mls/hr Q12H IVPB 06/15/20 12:00 06/22/20 11:59 06/15/20 12:27 Polyethylene Glycol (Miralax) 17 gm HSPRN PRN ORAL Constipation 06/12/20 00:30 07/12/20 00:29 06/12/20 18:09 Sertraline HCl (Zoloft) 50 mg DAILY ORAL 06/12/20 09:00 07/12/20 08:59 06/15/20 09:17 Sucralfate (Carafate) 1 gm AC+HS ORAL 06/12/20 06:30 09/10/20 06:29 06/15/20 11:57 Temazepam (Restoril) 15 mg HSPRN PRN ORAL Insomnia 06/12/20 00:30 06/19/20 00:29 Allergies: Coded Allergies: No Known Allergies (Unverified , 04/10/20) ROS Limited/Unobtainable: No Constitutional: Reports: no symptoms HEENT: Reports: no symptoms Cardiovascular: Reports: no symptoms Respiratory: Reports: no symptoms Gastrointestinal/Abdominal: Reports: black stools Genitourinary: Reports: no symptoms Neurologic/Psychiatric: Reports: no symptoms Subjective 79 YO F admitted with gastrointestinal hemorrhage. S/P endoscopy 06/13/20. Cover for Int Dav-Dr Guardado Objective Last Vital Signs Date Time Temp Pulse Resp B/P (MAP) Pulse Ox O2 Delivery O2 Flow Rate FiO2 06/15/20 12:00 97.7 70 20 153/50 (84) 96 06/15/20 09:00 Room Air 06/13/20 13:06 3 Laboratory Tests Test 06/14/20 16:27 06/14/20 20:30 06/15/20 07:00 06/15/20 12:14 POC Whole Blood Glucose 243 MG/DL (74-106) H 116 MG/DL (74-106) H 228 MG/DL (74-106) H White Blood Count 6.9 K/UL (4.8-10.8) Red Blood Count 3.83 M/UL (4.20-5.40) L Hemoglobin 10.9 G/DL (12.0-16.0) L Hematocrit 34.0 % (37.0-47.0) L Mean Corpuscular Volume 89 FL (80-99) Mean Corpuscular Hemoglobin 28.5 PG (27.0-31.0) Mean Corpuscular Hemoglobin Concent 32.2 G/DL (32.0-36.0) Red Cell Distribution Width 15.7 % (11.6-14.8) H Platelet Count 130 K/UL (150-450) L Mean Platelet Volume 8.9 FL (6.5-10.1) Neutrophils (%) (Auto) 78.4 % (45.0-75.0) H Lymphocytes (%) (Auto) 12.0 % (20.0-45.0) L Monocytes (%) (Auto) 5.8 % (1.0-10.0) Eosinophils (%) (Auto) 3.0 % (0.0-3.0) Basophils (%) (Auto) 0.8 % (0.0-2.0) Sodium Level 147 MMOL/L (136-145) H Potassium Level 3.6 MMOL/L (3.5-5.1) Chloride Level 112 MMOL/L (98-107) H Carbon Dioxide Level 26 MMOL/L (21-32) Anion Gap 9 mmol/L (5-15) Blood Urea Nitrogen 47 mg/dL (7-18) H Creatinine 1.6 MG/DL (0.55-1.30) H Estimat Glomerular Filtration Rate 31.1 mL/min (>60) Glucose Level 191 MG/DL (74-106) H Calcium Level 8.9 MG/DL (8.5-10.1) Pro-B-Type Natriuretic Peptide 92895 pg/mL (0-125) H Microbiology Date/Time Source Procedure Growth Status 06/12/20 15:30 Nasopharynx SARS-CoV-2 RdRp Gene Assay - Final Complete Intake and Output 06/14/20 06/15/20 19:00 07:00 Intake Total 550 ml 680 ml Balance 550 ml 680 ml Intake Oral 500 ml 80 ml IV Total 50 ml 600 ml # Voids 5 6 Objective PHYSICAL EXAMINATION: GENERAL: The patient is a well-developed, well-nourished obese female, in no apparent distress. HEENT: Eyes, pupils are equal, responsive to light and accommodation. Extraocular movements are intact. NECK: Supple without lymphadenopathy. CHEST: Lungs are clear to auscultation bilaterally without wheezes or rales. CARDIOVASCULAR: Regular rate. S1, S2 are normal without murmurs, rubs, or gallops. ABDOMEN: Soft, nontender, and nondistended. Positive bowel sounds. No evidence of hepatosplenomegaly. Currently, no rebound or guarding noted. EXTREMITIES: Negative for clubbing, cyanosis, or edema. RECTAL/GENITALIA: Not performed. NEUROLOGIC: Cranial nerves II through XII are grossly intact without focal deficits. Motor strength is 5/5 bilaterally. Deep tendon reflexes are 2+, plantar. Assessment/Plan Assessment/Plan ASSESSMENT: This is a 79-year-old female with: 1. Melena. 2. History of gastrointestinal hemorrhage. 3. History of gastric ulcer. 4. History of gastric polyp. 5. Diabetes type 2. 6. Hypertension. 7. Atrial fibrillation. 8. Hypercholesterolemia. 9. Acute renal failure. TREATMENT: 1. Gastrointestinal hemorrhage. Gastroenterology = Dr. Poppy Pabon/Sanjeev Kruger. S/P endoscopy 06/13/20= gastritis and gastric polyp. Continue Protonix. Follow recommendations of Gastroenterology. 2. Diabetes type 2. A NovoLog sliding scale has been instituted. 3. Hypertension. Continue Coreg and valsartan/hydrochlorothiazide as above. 4. Atrial fibrillation. A cardiology consultation has been obtained with Dr. Hahn. Continue carvedilol as above. 5. Hypercholesterolemia. Continue atorvastatin as above. 6. Renal failure. Nephrology = . Ricco Beckwith MD Jun 15, 2020 13:58
[2020-06-15] MEDS ORDERED: Piperacillin/Tazobactam 2.25 GM in D5W 55 ML IV SCH (14:00)
[2020-06-15] MEDS: D5NS 1,000 ML IV SCH ×2 (14:47→21:29)
--- NOTE | 2020-06-15 15:03 | NUR ---
NURSE NOTES: Pt is alert and awake in bed, eating her breakfast. respiration is even and unlabored. no fever noted at this time. Denies any pain and discomfort. no acute distress noted. placed call light within reach.
[2020-06-15 16:00] VITALS: BP 138/57
--- NOTE | 2020-06-15 19:18 | NUR ---
HAND-OFF: Report given to
--- NOTE | 2020-06-15 19:54 | NUR ---
NURSE NOTES: RECEIVED PATIENT FROM [facility]. A/OX4 IN BED. PATIENT IS SLEEPING AT THIS TIME. INDONESIAN SPEAKING ONLY; ABLE TO MAKE NEED KNOWN. NO PAIN NOTED AT THIS TIME. NO DISCOMFORT NOTED. IV RIGHT HAND 22g RUNNING D5NS @50ML/HR; FLUSHED PATENT; NO ERYTHEMA OR BLEEDING NOTED. BED IN THE LOWEST POSITION. SIDERAILS ARE UP X2, CALL LIGHT IS WITHIN REACH. WILL CONTINUE TO MONITOR.
[2020-06-15 20:00] VITALS: BP 176/76
--- NOTE | 2020-06-15 20:25 | Cardiac Electrophysiology PN ---
Assessment/Plan Assessment/Plan 1. Atrial fibrillation. The rate is controlled in the 60s. 2. 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 Echocardiogram showed ejection fraction of 65%. Continue Coreg 25 mg b.i.d. 3. Hypertension, on Coreg 25 b.i.d. as well as hydralazine 50 mg 3 times daily. 4. GI bleed, status post EGD. Awaiting results of biopsy. Followed by Dr. Kruger. 5. Acute on chronic renal failure with creatinine of 1.8. Patient is on IV fluids. Further evaluation by Dr. Agudelo. No evidence of hydronephrosis. Subjective Subjective Alert in NAD. S/P EGD on 06/13. DC planning Objective Last 24 Hour Vital Signs Date Time Temp Pulse Resp B/P (MAP) Pulse Ox O2 Delivery O2 Flow Rate FiO2 06/15/20 16:00 55 06/15/20 16:00 97.9 68 20 138/57 (84) 97 06/15/20 15:43 153/50 06/15/20 12:00 64 06/15/20 12:00 97.7 70 20 153/50 (84) 96 06/15/20 09:16 73 155/66 06/15/20 09:00 Room Air 06/15/20 08:00 78 06/15/20 08:00 97.7 73 20 155/66 (95) 96 06/15/20 06:10 166/77 06/15/20 04:00 65 06/15/20 04:00 97.7 66 20 161/77 (105) 94 06/15/20 00:00 70 06/15/20 00:00 97.9 69 20 123/49 (73) 94 06/14/20 22:43 134/59 06/14/20 21:00 Room Air 06/14/20 20:53 70 161/80 Intake and Output 06/14/20 06/15/20 19:00 07:00 Intake Total 550 ml 680 ml Balance 550 ml 680 ml Intake Oral 500 ml 80 ml IV Total 50 ml 600 ml # Voids 5 6 Laboratory Tests Test 06/14/20 20:30 06/15/20 07:00 06/15/20 12:14 06/15/20 16:17 POC Whole Blood Glucose 116 MG/DL (74-106) H 228 MG/DL (74-106) H 251 MG/DL (74-106) H White Blood Count 6.9 K/UL (4.8-10.8) Red Blood Count 3.83 M/UL (4.20-5.40) L Hemoglobin 10.9 G/DL (12.0-16.0) L Hematocrit 34.0 % (37.0-47.0) L Mean Corpuscular Volume 89 FL (80-99) Mean Corpuscular Hemoglobin 28.5 PG (27.0-31.0) Mean Corpuscular Hemoglobin Concent 32.2 G/DL (32.0-36.0) Red Cell Distribution Width 15.7 % (11.6-14.8) H Platelet Count 130 K/UL (150-450) L Mean Platelet Volume 8.9 FL (6.5-10.1) Neutrophils (%) (Auto) 78.4 % (45.0-75.0) H Lymphocytes (%) (Auto) 12.0 % (20.0-45.0) L Monocytes (%) (Auto) 5.8 % (1.0-10.0) Eosinophils (%) (Auto) 3.0 % (0.0-3.0) Basophils (%) (Auto) 0.8 % (0.0-2.0) Sodium Level 147 MMOL/L (136-145) H Potassium Level 3.6 MMOL/L (3.5-5.1) Chloride Level 112 MMOL/L (98-107) H Carbon Dioxide Level 26 MMOL/L (21-32) Anion Gap 9 mmol/L (5-15) Blood Urea Nitrogen 47 mg/dL (7-18) H Creatinine 1.6 MG/DL (0.55-1.30) H Estimat Glomerular Filtration Rate 31.1 mL/min (>60) Glucose Level 191 MG/DL (74-106) H Calcium Level 8.9 MG/DL (8.5-10.1) Pro-B-Type Natriuretic Peptide 80679 pg/mL (0-125) H Objective HEAD AND NECK: Shows no JVD. LUNGS: Clear. CARDIOVASCULAR: Shows regular S1 and S2 with no gallop or murmur. ABDOMEN: Soft. EXTREMITIES: No pitting edema. Iggy Leon MD Jun 15, 2020 20:24
[2020-06-16] VITALS: BP 132/99
[2020-06-16] MEDS: Zosyn 3.375gm in NS 110ml IVPB SCH (00:32)
[2020-06-16 04:00] VITALS: BP 153/107
[2020-06-16] MEDS: NovoLOG Insulin Flexpen SUBQ SCH ×2 (06:09→11:30)
[2020-06-16] MEDS: Sucralfate 1gm tab ORAL SCH ×2 (06:09→11:08)
[2020-06-16] MEDS: HydrALAZINE 50mg tab ORAL SCH (06:10)
--- NOTE | 2020-06-16 07:30 | NUR ---
NURSE NOTES: Received pt from [facility], pt is awake and alert, Pt is in RA, no SOB or acute respiratory distress noted, pt is on continues heart monitoring, pt has intact iv access RH 22G is running. no complain of pain at this moment. Dr Leon visited pt and is aware about Afib and no blood thinner and gi bleed, no new order received, MD will F/U. all needs attended, bed is locked and is in the lowest position, call light within easy reach. will continue to monitor.
--- NOTE | 2020-06-16 07:42 | NUR ---
NURSE HAND-OFF REPORT: Important Events on Shift: pt daughter wants to speak with Dr. Guardado. Patient Status: No acute distress Diet: cardiac diet Pending Orders: Pending Results/Labs: Pending MD notification: Latest Vital Signs: Temperature 98.1 , Pulse 66 , B/P 153 /107 , Respiratory Rate 20 , O2 SAT 96 , Room Air, O2 Flow Rate 3 . Vital Sign Comment: EKG Rhythm: A-Fib with BBB Rhythm change?: N MD Notified?: - MD Response: Latest Lopez Fall Score: 70 Fall Risk: High Risk Safety Measures: Call light Within Reach, Bed Alarm Zone 1, Side Rails Side Rails x2, Bed position Low and Locked. Fall Precautions: Yellow Socks Yellow Gown Door Sign Patient Fall Education Report given to Brandie CHINO .
[2020-06-16 08:00] VITALS: BP 161/64
[2020-06-16] MEDS: Sertraline 50mg tab ORAL SCH (08:48)
[2020-06-16] MEDS: Pantoprazole Inj IVP SCH (08:48)
[2020-06-16] MEDS: Carvedilol 25mg Tab ORAL SCH (08:48)
--- NOTE | 2020-06-16 08:48 | Consultation ---
History of Present Illness General Date patient seen: Jun 16, 2020 Chief Complaint: Gastrointestinal Bleed Referring physician: PCP Reason for Consultation: ESBL in UCx Present Illness HPI Pt discharged prior to being seen. Ignore note. Allergies: Coded Allergies: No Known Allergies (Unverified , 04/10/20) Medication History Scheduled Atorvastatin Calcium* (Atorvastatin Calcium*), 40 MG ORAL BEDTIME, (Reported) Carvedilol* (Carvedilol*), 25 MG ORAL EVERY 12 HOURS, (Reported) Cholecalciferol (Vitamin D3) (Vitamin D3*), 25 MCG PO DAILY, (Reported) Ferrous Sulfate (Ferosul), 325 MG PO DAILY, (Reported) Hydralazine Hcl* (Hydralazine Hcl*), 50 MG ORAL EVERY 8 HOURS, (Reported) Insulin Glargine (Lantus), 30 UNITS SUBQ DAILY, (Reported) Levothyroxine Sodium* (Synthorid*), 75 MCG ORAL DAILY, (Reported) Metformin Hcl* (Metformin Hcl*), 1,000 MG ORAL TWICE A DAY, (Reported) Mirabegron (Myrbetriq), 25 MG PO DAILY, (Reported) Pantoprazole* (Pantoprazole*), 40 MG ORAL BID Potassium Chloride (Klor-Con 10), 10 MEQ ORAL DAILY, (Reported) Sertraline Hcl* (Zoloft*), 50 MG ORAL DAILY, (Reported) Sucralfate* (Carafate*), 1 GM ORAL FOUR TIMES A DAY Valsartan/Hydrochlorothiazide 320-25MG (Diovan Hct 320-25 Mg Tablet), 1 TAB ORAL DAILY, (Reported) Scheduled PRN Docusate Sodium* (Docusate Sodium*), 100 MG ORAL TWICE A DAY PRN for Constipation, (Reported) Miscellaneous Medications Gabapentin* (Gabapentin*), 100 MG ORAL, (Reported) Metolazone (Metolazone), 5 MG PO, (Reported) Patient History Healthcare decision maker Resuscitation status Advanced Directive on File Physical Exam Last 24 Hour Vital Signs Date Time Temp Pulse Resp B/P (MAP) Pulse Ox O2 Delivery O2 Flow Rate FiO2 06/16/20 08:00 98.2 79 18 161/64 (96) 96 06/16/20 06:10 153/107 06/16/20 04:00 66 06/16/20 04:00 98.1 66 20 153/107 (122) 96 06/16/20 00:00 98.0 63 20 132/99 (110) 99 06/16/20 00:00 58 06/15/20 22:59 169/68 06/15/20 21:00 Room Air 06/15/20 21:00 55 06/15/20 20:53 71 176/75 06/15/20 20:00 98.1 71 20 176/76 (109) 96 06/15/20 16:00 55 06/15/20 16:00 97.9 68 20 138/57 (84) 97 06/15/20 15:43 153/50 06/15/20 12:00 64 06/15/20 12:00 97.7 70 20 153/50 (84) 96 06/15/20 09:16 73 155/66 06/15/20 09:00 Room Air Intake and Output 06/15/20 06/16/20 19:00 07:00 Intake Total 530 ml 670 ml Balance 530 ml 670 ml Intake Oral 480 ml 120 ml IV Total 50 ml 550 ml # Voids 5 7 Laboratory Tests Test 06/15/20 12:14 06/15/20 16:17 06/15/20 21:25 06/16/20 05:56 POC Whole Blood Glucose 228 MG/DL (74-106) H 251 MG/DL (74-106) H Pending Pending Height (Feet): 5 Height (Inches): 0.00 Weight (Pounds): 199 Medications Current Medications Medications (Trade) Dose Ordered Sig/Fidel Route PRN Reason Start Time Stop Time Status Last Admin Dose Admin Acetaminophen (Tylenol) 650 mg Q4H PRN ORAL fever 06/12/20 00:30 07/12/20 00:29 Carvedilol (Coreg) 25 mg EVERY 12 HOURS ORAL 06/12/20 09:00 07/12/20 08:59 06/15/20 20:53 Dextrose (Dextrose 50%) 25 ml Q30M PRN IV Hypoglycemia 06/12/20 00:30 09/10/20 00:29 Dextrose (Dextrose 50%) 50 ml Q30M PRN IV Hypoglycemia 06/12/20 00:30 09/10/20 00:29 Dextrose/Sodium Chloride 1,000 ml @ 50 mls/hr Q20H IV 06/12/20 10:30 07/12/20 10:29 06/15/20 21:29 Diphenhydramine HCl (Benadryl) 25 mg Q6H PRN ORAL Itching/Pruritis 06/12/20 00:30 07/12/20 00:29 Docusate Sodium (Colace) 100 mg BIDPRN PRN ORAL Constipation 06/12/20 10:30 07/12/20 10:29 Gabapentin (Neurontin) 100 mg BID ORAL 06/12/20 09:00 07/12/20 08:59 06/15/20 18:08 Hydralazine HCl (Apresoline) 50 mg EVERY 8 HOURS ORAL 06/12/20 06:00 09/10/20 05:59 06/16/20 06:10 Insulin Aspart (NovoLOG) BEFORE MEALS AND HS SUBQ 06/12/20 06:30 09/10/20 06:29 06/16/20 06:09 Levothyroxine Sodium (Synthroid) 75 mcg DAILY@0630 ORAL 06/12/20 06:30 07/12/20 06:29 06/16/20 06:09 Nitroglycerin (Ntg) 0.4 mg Q5M X 3 DOSES PRN SL Prn Chest Pain 06/12/20 00:30 07/12/20 00:29 Ondansetron HCl (Zofran) 4 mg Q6H PRN IVP Nausea & Vomiting 06/12/20 00:30 07/12/20 00:29 Pantoprazole (Protonix) 40 mg EVERY 12 HOURS IVP 06/12/20 10:45 07/12/20 10:44 06/15/20 20:53 Piperacillin Sod/ Tazobactam Sod 3.375 gm/Sodium Chloride 110 ml @ 27.5 mls/hr Q12H IVPB 06/15/20 12:00 06/22/20 11:59 06/16/20 00:32 Polyethylene Glycol (Miralax) 17 gm HSPRN PRN ORAL Constipation 06/12/20 00:30 07/12/20 00:29 06/12/20 18:09 Sertraline HCl (Zoloft) 50 mg DAILY ORAL 06/12/20 09:00 07/12/20 08:59 06/15/20 09:17 Sucralfate (Carafate) 1 gm AC+HS ORAL 06/12/20 06:30 09/10/20 06:29 06/16/20 06:09 Temazepam (Restoril) 15 mg HSPRN PRN ORAL Insomnia 06/12/20 00:30 06/19/20 00:29 Assessment/Plan Assessment/Plan: Pt discharged prior to being seen. Ignore note. Delicia Ding M.D. Jun 16, 2020 08:47
--- NOTE | 2020-06-16 09:17 | Cardiac Electrophysiology PN ---
Assessment/Plan Assessment/Plan 1. Atrial fibrillation. The rate is controlled in the 60s on Coreg [address] Pabon. Will start heparin drip and if no recurrence of bleeding, will change to DOAC 2. 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 Echocardiogram showed ejection fraction of 65%. 3. Hypertension, on Coreg 25 b.i.d. and hydralazine 50 mg 3 times daily. 4. GI bleed, status post EGD. Awaiting results of biopsy. Followed by Dr. Pabon 5. Acute on chronic renal failure with creatinine of 1.8. Patient is on IV fluids. Further evaluation by Dr. Agudelo. No evidence of hydronephrosis. Subjective Subjective Alert in NAD. S/P EGD on 06/13. Dr Pabon at bedside. In atrial fib. Objective Last 24 Hour Vital Signs Date Time Temp Pulse Resp B/P (MAP) Pulse Ox O2 Delivery O2 Flow Rate FiO2 06/16/20 08:48 79 161/64 06/16/20 08:00 98.2 79 18 161/64 (96) 96 06/16/20 06:10 153/107 06/16/20 04:00 66 06/16/20 04:00 98.1 66 20 153/107 (122) 96 06/16/20 00:00 98.0 63 20 132/99 (110) 99 06/16/20 00:00 58 06/15/20 22:59 169/68 06/15/20 21:00 Room Air 06/15/20 21:00 55 06/15/20 20:53 71 176/75 06/15/20 20:00 98.1 71 20 176/76 (109) 96 06/15/20 16:00 55 06/15/20 16:00 97.9 68 20 138/57 (84) 97 06/15/20 15:43 153/50 06/15/20 12:00 64 06/15/20 12:00 97.7 70 20 153/50 (84) 96 06/15/20 09:16 73 155/66 l Intake and Output 06/15/20 06/16/20 18:59 06:59 Intake Total 530 ml 720 ml Balance 530 ml 720 ml Intake Oral 480 ml 120 ml IV Total 50 ml 600 ml # Voids 5 7 Laboratory Tests Test 06/15/20 12:14 06/15/20 16:17 06/15/20 21:25 06/16/20 05:56 POC Whole Blood Glucose 228 MG/DL (74-106) H 251 MG/DL (74-106) H Pending Pending Objective HEAD AND NECK: Shows no JVD. LUNGS: Clear. CARDIOVASCULAR: Shows regular S1 and S2 with no gallop or murmur. ABDOMEN: Soft. EXTREMITIES: No pitting edema. Iggy Leon MD Jun 16, 2020 09:17
--- NOTE | 2020-06-16 09:30 | Pulmonology Progress Note ---
Subjective ROS Limited/Unobtainable: No Constitutional: Reports: no symptoms HEENT: Repors: no symptoms Allergies: Coded Allergies: No Known Allergies (Unverified , 04/10/20) Objective Last 24 Hour Vital Signs Date Time Temp Pulse Resp B/P (MAP) Pulse Ox O2 Delivery O2 Flow Rate FiO2 06/16/20 08:48 79 161/64 06/16/20 08:00 98.2 79 18 161/64 (96) 96 06/16/20 07:43 83 06/16/20 06:10 153/107 06/16/20 04:00 66 06/16/20 04:00 98.1 66 20 153/107 (122) 96 06/16/20 00:00 98.0 63 20 132/99 (110) 99 06/16/20 00:00 58 06/15/20 22:59 169/68 06/15/20 21:00 Room Air 06/15/20 21:00 55 06/15/20 20:53 71 176/75 06/15/20 20:00 98.1 71 20 176/76 (109) 96 06/15/20 16:00 55 06/15/20 16:00 97.9 68 20 138/57 (84) 97 06/15/20 15:43 153/50 06/15/20 12:00 64 06/15/20 12:00 97.7 70 20 153/50 (84) 96 Intake and Output 06/15/20 06/16/20 19:00 07:00 Intake Total 530 ml 670 ml Balance 530 ml 670 ml Intake Oral 480 ml 120 ml IV Total 50 ml 550 ml # Voids 5 7 General Appearance: WD/WN HEENT: normocephalic, anicteric, EOMI, supple Respiratory: chest wall non-tender, lungs clear Cardiovascular: normal peripheral pulses, normal rate, regular rhythm Abdomen: normal bowel sounds, soft, non tender Genitourinary: normal external genitalia Extremities: no cyanosis, no edema, pedal pulses normal Skin: no rash Neurologic: alert, oriented x 3, responsive Musculoskeletal: normal muscle bulk Laboratory Tests 06/15/20 12:14: POC Whole Blood Glucose 228H 06/15/20 16:17: POC Whole Blood Glucose 251H 06/15/20 21:25: POC Whole Blood Glucose [Pending] 06/16/20 05:56: POC Whole Blood Glucose [Pending] Current Medications Medications (Trade) Dose Ordered Sig/Fidel Route PRN Reason Start Time Stop Time Status Last Admin Dose Admin Acetaminophen (Tylenol) 650 mg Q4H PRN ORAL fever 06/12/20 00:30 07/12/20 00:29 Carvedilol (Coreg) 25 mg EVERY 12 HOURS ORAL 06/12/20 09:00 07/12/20 08:59 06/16/20 08:48 Dextrose (Dextrose 50%) 25 ml Q30M PRN IV Hypoglycemia 06/12/20 00:30 09/10/20 00:29 Dextrose (Dextrose 50%) 50 ml Q30M PRN IV Hypoglycemia 06/12/20 00:30 09/10/20 00:29 Dextrose/Sodium Chloride 1,000 ml @ 50 mls/hr Q20H IV 06/12/20 10:30 07/12/20 10:29 06/15/20 21:29 Diphenhydramine HCl (Benadryl) 25 mg Q6H PRN ORAL Itching/Pruritis 06/12/20 00:30 07/12/20 00:29 Docusate Sodium (Colace) 100 mg BIDPRN PRN ORAL Constipation 06/12/20 10:30 07/12/20 10:29 Gabapentin (Neurontin) 100 mg BID ORAL 06/12/20 09:00 07/12/20 08:59 06/16/20 08:48 Hydralazine HCl (Apresoline) 50 mg EVERY 8 HOURS ORAL 06/12/20 06:00 09/10/20 05:59 06/16/20 06:10 Insulin Aspart (NovoLOG) BEFORE MEALS AND HS SUBQ 06/12/20 06:30 09/10/20 06:29 06/16/20 06:09 Levothyroxine Sodium (Synthroid) 75 mcg DAILY@0630 ORAL 06/12/20 06:30 07/12/20 06:29 06/16/20 06:09 Nitroglycerin (Ntg) 0.4 mg Q5M X 3 DOSES PRN SL Prn Chest Pain 06/12/20 00:30 07/12/20 00:29 Ondansetron HCl (Zofran) 4 mg Q6H PRN IVP Nausea & Vomiting 06/12/20 00:30 07/12/20 00:29 Pantoprazole (Protonix) 40 mg EVERY 12 HOURS IVP 06/12/20 10:45 07/12/20 10:44 06/16/20 08:48 Piperacillin Sod/ Tazobactam Sod 3.375 gm/Sodium Chloride 110 ml @ 27.5 mls/hr Q12H IVPB 06/15/20 12:00 06/22/20 11:59 06/16/20 00:32 Polyethylene Glycol (Miralax) 17 gm HSPRN PRN ORAL Constipation 06/12/20 00:30 07/12/20 00:29 06/12/20 18:09 Sertraline HCl (Zoloft) 50 mg DAILY ORAL 06/12/20 09:00 07/12/20 08:59 06/16/20 08:48 Sucralfate (Carafate) 1 gm AC+HS ORAL 06/12/20 06:30 09/10/20 06:29 06/16/20 06:09 Temazepam (Restoril) 15 mg HSPRN PRN ORAL Insomnia 06/12/20 00:30 06/19/20 00:29 Assessment/Plan Problems: (1) GI (gastrointestinal bleed) (2) Acute dehydration (3) Renal failure (ARF), acute on chronic (4) Anemia (5) Diabetes mellitus (6) HTN (hypertension) (7) Hypothyroidism Assessment/Plan doing better h/h stable renal function improving dc home today Cassy Blackburn MD Jun 16, 2020 09:30
--- NOTE | 2020-06-16 10:32 | NUR ---
*-*DISCHARGE PLANNING*-* PATIENT HAS BEEN REFERRED TO: [facility] P: [phone] Addendum: 06/17/20 at 1122 by BRENT FLOR CM PATIENT ON SERVICE WITH [facility]
[2020-06-16 10:45] LABS: BASOPHILS % (AUTO) 0.9 % (0.0-2.0); EOSINOPHILS % (AUTO) 2.9 % (0.0-3.0); HEMATOCRIT 33.6 % (37.0-47.0); HEMOGLOBIN 10.7 G/DL (12.0-16.0); LYMPHOCYTES % (AUTO) 9.1 % (20.0-45.0); MEAN CORPUSCULAR VOLUME 88 FL (80-99); MONOCYTES % (AUTO) 5.3 % (1.0-10.0); NEUTROPHILS % (AUTO) 81.9 % (45.0-75.0); PLATELET COUNT 139 K/UL (150-450); RED BLOOD COUNT 3.81 M/UL (4.20-5.40); RED CELL DISTRIBUTION WIDTH 16.1 % (11.6-14.8); WHITE BLOOD COUNT 8.2 K/UL (4.8-10.8)
[2020-06-16 10:51] VITALS: BP 189/84
--- NOTE | 2020-06-16 10:52 | NUR ---
NURSE NOTES: Dr Agudelo is aware about BP 189/84, waiting to call back. will continue to monitor.
--- NOTE | 2020-06-16 10:59 | Nephrology Progress Note ---
Assessment/Plan Problem List: (1) Renal failure (ARF), acute on chronic (2) Anemia (3) Acute dehydration (4) Gastrointestinal bleeding (5) Diabetes mellitus (6) Chronic atrial fibrillation (7) Hypothyroidism Assessment Acute renal failure, superimposed on CKD Dehydration Anemia, GI bleed History of atrial fibrillation UTI Diabetes mellitus Hypothyroidism Plan June 16: Today's labs pending. Most recent serum creatinine 1.6. Blood pressure elevated. Will add Norvasc for high blood pressure. Will add as needed hydralazine for blood pressure over 160 systolic. Discussed with LULÚ Diego.. June 15: Labs reviewed. Serum creatinine lower at 1.6. Remains stable from renal standpoint of view. Continue per GI and consultants. June 14: Labs reviewed. Serum creatinine 1.8. Remains stable from renal s tandpoint of view. Continue per consultants. Lower IV fluid to 50 cc an hour June 13: Labs reviewed. Medication list reviewed. Serum creatinine 1.9 stable. Continue per consultants. PETTY Findings: Right kidney measures 7.9 cm in length. Left kidney measures 9.1 cm in length. Both kidneys demonstrate normal echogenicity with lobulated contours. No hydronephrosis. There is a small cyst in the right kidney. Partially obscured inferior vena cava. Bladder is normal. There is incidental finding of a gallstone within the gallbladder Impression: Small right kidney Negative for hydronephrosis Small right renal cyst is incidentally noted. Cholelithiasis. June 12: Slow hydrate Monitor renal parameters Monitor hemoglobin hematocrit Antibiotics 2D echocardiogram Kidney ultrasound Check TSH, lipid panel, anemia work-up, hemoglobin A1c Per consultants Per orders Subjective ROS Limited/Unobtainable: No Constitutional: Reports: malaise Objective Objective Last 24 Hour Vital Signs Date Time Temp Pulse Resp B/P (MAP) Pulse Ox O2 Delivery O2 Flow Rate FiO2 06/16/20 10:51 189/84 (119) 06/16/20 09:00 Room Air 06/16/20 08:48 79 161/64 06/16/20 08:00 98.2 79 18 161/64 (96) 96 06/16/20 07:43 83 06/16/20 06:10 153/107 06/16/20 04:00 66 06/16/20 04:00 98.1 66 20 153/107 (122) 96 12/7/20 00:00 98.0 63 20 132/99 (110) 99 06/16/20 00:00 58 06/15/20 22:59 169/68 06/15/20 21:00 Room Air 06/15/20 21:00 55 06/15/20 20:53 71 176/75 06/15/20 20:00 98.1 71 20 176/76 (109) 96 06/15/20 16:00 55 06/15/20 16:00 97.9 68 20 138/57 (84) 97 06/15/20 15:43 153/50 06/15/20 12:00 64 06/15/20 12:00 97.7 70 20 153/50 (84) 96 Intake and Output 06/15/20 06/16/20 19:00 07:00 Intake Total 530 ml 720 ml Balance 530 ml 720 ml Intake Oral 480 ml 120 ml IV Total 50 ml 600 ml # Voids 5 7 Laboratory Tests 06/15/20 12:14: POC Whole Blood Glucose 228H 06/15/20 16:17: POC Whole Blood Glucose 251H 06/15/20 21:25: POC Whole Blood Glucose [Pending] 06/16/20 05:56: POC Whole Blood Glucose [Pending] 06/16/20 08:40: White Blood Count 8.2, Red Blood Count 3.81L, Hemoglobin 10.7L, Hematocrit 33.6L , Mean Corpuscular Volume 88, Mean Corpuscular Hemoglobin 28.2, Mean Corpuscular Hemoglobin Concent 31.9L, Red Cell Distribution Width 16.1H, Platelet Count 139L, Mean Platelet Volume 8.7, Neutrophils (%) (Auto) 81.9H, Lymphocytes (%) (Auto) 9.1L, Monocytes (%) (Auto) 5.3, Eosinophils (%) (Auto) 2.9, Basophils (%) (Auto) 0.9, Sodium Level [Pending], Potassium Level [Pending], Chloride Level [Pending], Carbon Dioxide Level [Pending], Blood Urea Nitrogen [Pending], Creatinine [Pending], Estimat Glomerular Filtration Rate [Pending], Glucose Level [Pending], Calcium Level [Pending], Phosphorus Level [Pending], Magnesium Level [Pending], Total Bilirubin [Pending], Aspartate Amino Transf (AST/SGOT) [Pending], Alanine Aminotransferase (ALT/SGPT) [Pending], Alkaline Phosphatase [Pending], Total Protein [Pending], Albumin [Pending], Globulin [Pending] Height (Feet): 5 Height (Inches): 0.00 Weight (Pounds): 199 General Appearance: no apparent distress Objective No change Caleb Agudelo MD Jun 16, 2020 10:59
[2020-06-16] MEDS ORDERED: HydrALAZINE 25mg tab ORAL PRN (11:00)
[2020-06-16 11:40] LABS: ALANINE AMINOTRANSFERASE 35 U/L (12-78); ALBUMIN 3.2 G/DL (3.4-5.0); ALBUMIN/GLOBULIN RATIO 0.9 (1.0-2.7); ALKALINE PHOSPHATASE 115 U/L (46-116); ASPARTATE AMINO TRANSFERASE 31 U/L (15-37); BILIRUBIN,TOTAL 0.3 MG/DL (0.2-1.0); BLOOD UREA NITROGEN 38 mg/dL (7-18); CARBON DIOXIDE 27 MMOL/L (21-32); CREATININE 1.6 MG/DL (0.55-1.30)
[2020-06-16 11:43] VITALS: BP 150/66
[2020-06-16 11:54] LABS: CHLORIDE 109 MMOL/L (98-107); POTASSIUM 3.9 MMOL/L (3.5-5.1); SODIUM 145 MMOL/L (136-145)
--- NOTE | 2020-06-16 11:55 | NUR ---
NURSE NOTES: pt has discharge order, all discharge assessments and instructions done and pt and daughter Ana Cristina verbally confirmed to understand all. pt and Ana Cristina are aware about [facility] ph: [phone], pt is stable, V/S stable, all belongings checked with RN and are with pt. Dr Agudelo is aware about all labs NNO. IV access D/C, Pt left hospital with accompany daughter
--- NOTE | 2020-06-16 22:28 | General Progress Note ---
Subjective Allergies: Coded Allergies: No Known Allergies (Unverified , 04/10/20) Subjective Above noted feels OK wants to go home d/w cardiology Objective Last 24 Hour Vital Signs Date Time Temp Pulse Resp B/P (MAP) Pulse Ox O2 Delivery O2 Flow Rate FiO2 06/16/20 11:43 97.1 70 20 150/66 (94) 95 06/16/20 11:09 189/84 06/16/20 11:09 79 189/84 06/16/20 10:51 189/84 (119) 06/16/20 09:00 Room Air 06/16/20 08:48 79 161/64 06/16/20 08:00 98.2 79 18 161/64 (96) 96 06/16/20 07:43 83 06/16/20 06:10 153/107 06/16/20 04:00 66 06/16/20 04:00 98.1 66 20 153/107 (122) 96 06/16/20 00:00 98.0 63 20 132/99 (110) 99 06/16/20 00:00 58 06/15/20 22:59 169/68 Intake and Output 06/15/20 06/16/20 19:00 07:00 Intake Total 530 ml 720 ml Balance 530 ml 720 ml Intake Oral 480 ml 120 ml IV Total 50 ml 600 ml # Voids 5 7 Laboratory Tests 06/16/20 05:56: POC Whole Blood Glucose [Pending] 06/16/20 08:40: White Blood Count 8.2, Red Blood Count 3.81L, Hemoglobin 10.7L, Hematocrit 33.6L , Mean Corpuscular Volume 88, Mean Corpuscular Hemoglobin 28.2, Mean Corpuscular Hemoglobin Concent 31.9L, Red Cell Distribution Width 16.1H, Platelet Count 139L, Mean Platelet Volume 8.7, Neutrophils (%) (Auto) 81.9H, Lymphocytes (%) (Auto) 9.1L, Monocytes (%) (Auto) 5.3, Eosinophils (%) (Auto) 2.9, Basophils (%) (Auto) 0.9, Sodium Level 145, Potassium Level 3.9, Chloride Level 109H, Carbon Dioxide Level 27, Blood Urea Nitrogen 38H, Creatinine 1.6H, Estimat Glomerular Filtration Rate 31.1, Glucose Level 237H, Calcium Level 9.0, Phosphorus Level 3.0, Magnesium Level 2.1, Total Bilirubin 0.3, Aspartate Amino Transf (AST/SGOT) 31, Alanine Aminotransferase (ALT/SGPT) 35, Alkaline Phosphatase 115, Total Protein 6.6, Albumin 3.2L, Globulin 3.4, Albumin/Globulin Ratio 0.9L 06/16/20 11:13: POC Whole Blood Glucose 210H Height (Feet): 5 Height (Inches): 0.00 Weight (Pounds): 199 Objective WDWN L woman NCAT sujpple CTA RR abd soft and ND no edema Assessment/Plan Assessment/Plan: Assessment - GI Bleed - anemia - h/o gastric polyps - gastritis Recommendations - PPI - PO diet - follow labs - further w/u if bleeding continues - OK to restart anticoagulation Poppy Pabon MD Jun 16, 2020 22:28
--- NOTE | 2020-06-17 11:23 | NUR ---
*-*DISCHARGE PLANNED*-* PATIENT HAS BEEN ACCEPTED WITH: [facility] P: [phone] S/W KAILEE, WILL SERVICE PATIENT UPON DISCHARGE.
--- NOTE | 2020-06-18 11:04 | Discharge Summary ---
Discharge Summary Discharge Summary _ Discharge summary DATE OF ADMISSION: 06/11/2020 DATE OF DISCHARGE: [] 06/16/2020 DISCHARGED BY: Dr. Ivan patient was discharged home with home health services. Follow up with primary care provider in one week. REASON FOR ADMISSION: [] 79 years old female with past medical history of hypertension, diabetes mellitus, atrial fibrillation, presented to for black stools. Symptoms started few days before. Patient reported 5 bowel movements that were only jet black. She denies bright red bleeding per rectum. Patient had a history of gastric polyp status post Endo Clip patient also had removal of colon polyps. At that time polyps were negative for malignancy. Patient not on anticoagulation given GI bleeding. She denies abdominal pain, nausea, vomiting, diarrhea. No chest pain or shortness of breath. No fever or chills. Upon evaluation vital signs were stable. Laboratory work-up revealed no leukocytosis hemoglobin 10.9 hematocrit 33.4 platelet count 160. Stable electrolytes. BUN 99, creatinine 2.3. Glucose 133. Stable LFT lipase 218 urinalysis revealed pyuria and many bacteria EKG revealed sinus rhythm no acute ischemic change EKG revealed atrial fibrillation with a controlled ventricular response. Patient made with a GI bleeding anemia renal failure and chronic atrial fibrillation. CONSULTANTS: communication signals intelligence Dr. Rojas neurologist pulmonary/critical care Dr. Landry ID specialist Dr. Ding GI specialist Dr. Kruger diamond sizer and sorter Dr. Agudelo vegetable tester/oncologist surgery psychiatrist HOSPITAL COURSE: [] Patient admitted to telemetry floor. GI specialist follow. Patient undergone endoscopy on 06 13 which revealed 2 antral polyp status post biopsy gastritis status post biopsy also biopsy of duodenum to rule out celiac disease. Biopsy results revealed hyperplastic polyp of the antrum, minimal chronic gastritis with no activities. No H. pylori seen. Intestinal metaplasia present. No evidence of dysplasia or malignancy. Benign duodenal mucosa with no significant histopathological abnormality. Negative for Sainz lesion. Biopsy of the antrum revealed mild chronic antral gastritis with no activity. No H. pylori. Negative for intestinal metaplasia dysplasia or malignancy. Patient was on PPI and Carafate. Hemoglobin hematocrit were closely monitored with goal to keep hemoglobin above 7. Anemia work-up was consistent with anemia of chronic disease. H&H remains in the baseline. Patient slowly started on liquid diet and advance as tolerated. Prior to discharge hemoglobin 10.7 hematocrit 33.6. GI specialist cleared to restart anticoagulation for atrial fibrillation. Echocardiogram revealed preserved ejection fraction 65%. No evidence of wall motion abnormality. Telemetry showed atrial fibrillation with bundle branch throughout the rate was controlled after anticoagulation initially was hold due to GI bleeding. Heart rate was controlled with beta-laly. Blood pressure was managed with Coreg and hydralazine. Initially anticoagulation was hold and then Sameer Coulter Upon discharge cleared to restart DOAC upon discharge. Blood pressure was managed with current regimen blood sugar was managed with sliding scale of insulin. Hemoglobin A1c 6.3 patient provided diabetic diet and diabetic teaching. Renal parameters electrolytes are closely monitor electrolytes corrected as needed nephrotoxic's were avoided volumes were closely monitored creatinine trending down. Renal ultrasound revealed small right kidney no evidence of hydronephrosis. Creatinine from initial 2.3 down to 1.6. Urine culture revealed cell ESBL. Patient provided with Zosyn. Rapid COVID-19 was negative. TSH within normal limits. Synthroid was continued. Patient clinically stabilized and was ready for discharge FINAL DIAGNOSES: 1. [] GI bleeding Status post endoscopy Gastritis History of gastric polyps Acute dehydration UTI Acute on chronic renal failure Anemia Atrial fibrillation Complete right bundle branch block with history of old myocardial infarction Hypertension Diabetes mellitus Hypertension Hypothyroidism DISCHARGE MEDICATIONS: See Medication Reconciliation list. DISCHARGE INSTRUCTIONS: Patient was discharged home with home health services. Follow up with primary care provider in one week. I have been assigned to dictate discharge summary for this account. Shaista Falk NP Jun 18, 2020 11:04
== END 2020-06-16 11:54 | disposition home health service (06) | DRG 378 ==
LOC: EMR 20:49 → 2E 21:02 → EDBEDREQ 23:01 → 2E 06-13 10:48
DX: K29.71 Gastritis, unspecified, with bleeding (principal); N17.9 Acute kidney failure, unspecified; N39.0 Urinary tract infection, site not specified; I48.20 Chronic atrial fibrillation, unspecified; Z79.4 Long term (current) use of insulin; E78.00 Pure hypercholesterolemia, unspecified; I13.10 Hypertensive heart and chronic kidney disease without heart failure, with stage 1 through stage 4 chronic kidney disease, or unspecified chronic kidney disease; E11.22 Type 2 diabetes mellitus with diabetic chronic kidney disease; N18.9 Chronic kidney disease, unspecified; D63.8 Anemia in other chronic diseases classified elsewhere; E86.0 Dehydration; I45.10 Unspecified right bundle-branch block; I25.2 Old myocardial infarction; E03.9 Hypothyroidism, unspecified; K31.7 Polyp of stomach and duodenum
CPT/HCPCS: 36415; 76770; 80048; 80053; 80061; 81003; 82150; 82270; 82550; 82607; 82728; 82746; 82962; 82977; 83036; 83540; 83550; 83690; 83735; 83880; 84100; 84300; 84443; 84484; 84550; 85025; 85610; 85730; 86140; 86850; 86900; 86901; 87086; 87181; 93005; 93306; 94003; 94150; 96361; 96365; 96375; 99291; J1815; J7030; J8499; U0002